=== PATIENT | female | born 1950 | race Caucasian/White ===

== ENCOUNTER 2021-06-04 23:57 | Inpatient (IN) ==
[2021-06-05] MEDS ORDERED: ACETAMINOPHEN 1,000 MG/100 ML VIAL IV STA (00:05)
[2021-06-05] MEDS ORDERED: fentaNYL citrate 100 MCG/2 ML VIAL IV PRN (00:05)
[2021-06-05] MEDS ORDERED: SODIUM CHLORIDE 0.9% 1000ML 1,000 ML IV SCH (00:15)
--- NOTE | 2021-06-05 00:15 | Emergency Department Note ---
History of Present Illness General Chief complaint: Hip Pain Stated complaint: HIP PAIN/INJURY Time Seen by Provider: 06/04/21 23:58 Source: patient and EMS Mode of arrival: EMS Limitations: no limitations History of Present Illness Provider complaint: fall, left hip pain Onset (ago): hour(s) Location: hip Radiation: distal Severity: moderate Associated symptoms: + denies other symptoms Treatments prior to arrival: none This is a 70-year-old female who presents the emergency department following an accidental fall at home. Patient states she was walking through her kitchen, does not recall feeling dizzy or having any other prodromal symptoms, believes she tripped and fell landing on her left hip. Patient denies any head injury or loss of consciousness. Denies any concern for injury to the left upper extremity, back, or neck. Patient states she did previously have a femur fracture that was surgically repaired on the left, no prior hip problems. Patient states she was unable to move or bear weight due to the pain. Patient states secondary to prior surgery she does have chronic neuropathy including a numbness in the left lower extremity. Patient denies any use of anticoagulation. Pt seen during a time of high acuity and national emergency pandemic while wearing PPE. Home Medications Medication Instructions Recorded Confirmed Type montelukast 10 mg tablet 10 mg PO DAILY 01/29/19 06/05/21 History acetaminophen 500 mg tablet 1,000 mg PO Q6H PRN 06/05/21 06/05/21 History (Tylenol Extra Strength) cyclobenzaprine 5 mg tablet 5 mg PO HS 06/05/21 06/05/21 History losartan 25 mg tablet 50 mg PO QAM 06/05/21 06/05/21 History nystatin 100,000 unit/gram topical 1 applic TOPICAL DIRECTED PRN 06/05/21 06/05/21 History cream pyridoxine (vitamin B6) 25 mg 0 mg PO TID 06/05/21 06/05/21 History tablet (Vitamin B-6) sulfamethoxazole 800 1 tab PO BID 06/05/21 06/05/21 History mg-trimethoprim 160 mg tablet thiamine HCl (vitamin B1) 100 mg 100 mg PO DAILY 06/05/21 06/05/21 History tablet Allergies Allergy/AdvReac Type Severity Reaction Status Date / Time No Known Allergies Allergy Unverified 06/05/21 01:18 Past Med/Surg History Medical History (Updated 06/05/21 @ 14:14 by Naif Adams DO) Colon cancer Foot fracture Vomiting Family History Other Family history non-contributory Social History Smoking Status: Former smoker Cigarettes Per Day: 3-4; Smoking End Date: 2011; Second Hand Exposure: No; Do You Dip or Chew Tobacco: No; Tobacco Cessation Education Requested by Patient: No Hx Alcohol Use: No Hx Substance Use: No Preferred Language: Lithuanian Communication Ability: Effective Health Type Technician Required: No Beliefs That Will Affect Care: None marital status: Current Living Situation: Spouse current occupational status: employed How many Children do You have: 2 Feels Safe at Home: Yes Assistive Devices: Walker Review of Systems A total of 10 systems reviewed and were otherwise negative All systems reviewed & are unremarkable except as noted in HPI & below Physical Exam Vital Signs Vital Signs - 24 hr 06/05/21 00:10 06/05/21 00:48 06/05/21 01:27 Temperature 36.4 C L Temperature Source Oral Pulse Rate 80 Pulse Rate [Finger] 81 81 Respiratory Rate 18 18 Respiratory Effort / Characteristics Non-Labored Non-Labored Respiratory Depth Normal Normal Blood Pressure [Right Arm] 201/92 H 168/89 H Blood Pressure Mean [Right Arm] 128 115 Blood Pressure Position [Right Arm] Sitting Pulse Oximetry 98 97 95 Oxygen Delivery Method Room Air Room Air Room Air Sepsis Recent Fever Within 48 Hours No Sepsis New/Unexplained Change in Mental Status N/A Sepsis Action Taken by Nursing No Action Required GENERAL: alert, well appearing, well nourished, no distress, non-toxic EYE EXAM: normal conjunctiva, PERRL and EOM's grossly intact OROPHARYNX: no exudate, no erythema, lips, buccal mucosa, and tongue normal and mucous membranes are moist NECK: supple, no nuchal rigidity, no adenopathy, non-tender LUNGS: Clear to auscultation. Normal chest wall mechanics, no w/r/r HEART: no murmurs, S1 normal and S2 normal ABDOMEN: abdomen soft, non-tender, normo-active bowel sounds, no masses, no rebound or guarding. BACK: Back is symmetrical on inspection and there is no deformity, no midline tenderness, no CVA tenderness. SKIN: no rashes and no bruising UPPER EXTREMITIES: upper extremities are grossly normal. FROM, nml pulses b/l. LOWER EXTREMITIES: No pitting edema. FROM, nml pulses b/l. NEURO EXAM: Normal sensorium, cranial nerves II-XII grossly intact, normal speech, no gross weakness of arms, no gross weakness of legs. Gross sensation intact. Course Administered Medications Acetaminophen (Acetaminophen 325 Mg Tab) 650 mg PO Q4H PRN PRN Reason: pain/fever Stop: 07/05/21 05:04 Last Admin: 06/05/21 10:55 Dose: 650 mg Documented by: [id number] Cyclobenzaprine HCl (Cyclobenzaprine Hcl 5 Mg Tab) 5 mg PO HS MIRTHA Stop: 07/05/21 20:59 Last Admin: 06/05/21 20:04 Dose: 5 mg Documented by: [id number] Hydromorphone HCl (Hydromorphone Inj 0.5 Mg/0.5 Ml Syr) 0.5 mg IV Q3H PRN PRN Reason: Pain Stop: 06/19/21 05:04 Last Admin: 06/06/21 04:22 Dose: 0.5 mg Documented by: [id number] Admin: 06/05/21 23:37 Dose: 0.5 mg Documented by: [id number] Admin: 06/05/21 18:42 Dose: 0.5 mg Documented by: [id number] Admin: 06/05/21 15:44 Dose: 0.5 mg Documented by: [id number] Admin: 06/05/21 12:13 Dose: 0.5 mg Documented by: [id number] Admin: 06/05/21 09:43 Dose: 0.5 mg Documented by: [id number] Admin: 06/05/21 06:42 Dose: 0.5 mg Documented by: [id number] Sodium Chloride (Nss 1000ml) 1,000 mls @ 50 mls/hr IV .Q20H MIRTHA Stop: 06/06/21 19:03 Last Admin: 06/05/21 08:23 Dose: 50 mls/hr Documented by: [id number] Losartan Potassium (Losartan Potassium 50 Mg Tab) 50 mg PO QAM MIRTHA Stop: 07/05/21 08:59 Last Admin: 06/05/21 08:24 Dose: 50 mg Documented by: [id number] Montelukast Sodium (Montelukast Sodium 10 Mg Tablet) 10 mg PO DAILY MIRTHA Stop: 07/05/21 08:59 Last Admin: 06/05/21 08:25 Dose: 10 mg Documented by: [id number] Ondansetron HCl (Ondansetron Inj 2 Mg/Ml 2 Ml Vial) 4 mg IV Q6H PRN PRN Reason: Nausea Stop: 07/05/21 05:04 Last Admin: 06/05/21 06:48 Dose: 4 mg Documented by: [id number] Thiamine HCl (Thiamine Hcl 100 Mg Tab) 100 mg PO DAILY MIRTHA Stop: 07/05/21 08:59 Last Admin: 06/05/21 08:24 Dose: 100 mg Documented by: [id number] Urea (Urea (Urea-Na) 15 Gm Pack) 15 gm PO BID MIRTHA Stop: 07/05/21 10:14 Last Admin: 06/05/21 20:04 Dose: 15 gm Documented by: [id number] Admin: 06/05/21 10:55 Dose: 15 gm Documented by: [id number] Discontinued Medications Fentanyl Citrate (Fentanyl Citrate 100 Mcg/2 Ml Vial) 50 mcg IV Q15M PRN PRN Reason: Pain Stop: 06/19/21 00:04 Last Admin: 06/05/21 00:31 Dose: 50 mcg Documented by: [id number] Hydromorphone HCl (Hydromorphone Inj 0.5 Mg/0.5 Ml Syr) 0.5 mg IV NOW STA Stop: 06/05/21 02:42 Last Admin: 06/05/21 03:00 Dose: 0.5 mg Documented by: [id number] Acetaminophen (Ofirmev) 1,000 mg in 100 mls @ 400 mls/hr IV NOW STA Stop: 06/05/21 00:19 Last Infusion: 06/05/21 01:30 Dose: 0 mls/hr Documented by: [id number] Admin: 06/05/21 00:32 Dose: 400 mls/hr Documented by: [id number] Sodium Chloride (Nss 1000ml) 1,000 mls @ 125 mls/hr IV .Q8H MIRTHA Stop: 07/05/21 00:14 Last Infusion: 06/05/21 08:59 Dose: 0 mls/hr Documented by: [id number] Admin: 06/05/21 00:31 Dose: 125 mls/hr Documented by: [id number] Medical Decision Making Differential Diagnosis Fracture, subluxation, dislocation, contusion, ligamentous injury, neurovascular, compartment syndrome, rhabdomyolysis, as well as other pathologies. Medical Records Attestation: I reviewed the patient's medical records. Home Medications Current Medication List: was personally reviewed by me Laboratory Data Attestation: I reviewed the patient's lab results. Result diagrams: 06/05/21 07:16 06/05/21 07:16 Lab Results 06/05/21 06/05/21 06/05/21 Range/Units 00:26 00:26 00:26 WBC 4.70 L (4.8-10.8) K/uL RBC 4.22 (4.2-5.4) M/uL Hgb 12.6 (12.0-16.0) g/dL Hct 36.7 L (37-47) % MCV 87.0 (80-100) fL MCH 29.9 (25-34) pg MCHC 34.3 (32-36) g/dL RDW Std Deviation 43.3 (36.4-46.3) fL RDW Coeff of Kimberlee 13.6 (11.5-14.5) % Plt Count 266 (130-400) K/uL MPV 8.8 (7.4-10.4) fL Immature Gran % (Auto) 0.2 % Neut % (Auto) 76.0 % Lymph % (Auto) 15.7 % [place] % (Auto) 5.3 % Eos % (Auto) 1.5 % Baso % (Auto) 1.3 % Neut # (Auto) 3.57 (1.4-6.5) K/uL Lymph # (Auto) 0.74 L (1.2-3.4) K/uL [place] # (Auto) 0.25 (0.11-0.59) K/uL Eos # (Auto) 0.07 (0-0.5) K/uL Baso # (Auto) 0.06 (0-0.2) K/uL Immature Gran # (Auto) 0.01 (0.00-0.02) K/uL PT 9.8 (9.0-12.0) Seconds INR 1.0 (0.9-1.1) Sodium 125 L (136-145) mmol/L Potassium 3.5 (3.5-5.1) mmol/L Chloride 94 L (98-107) mmol/L Carbon Dioxide 24 (21-32) mmol/L Anion Gap 7 (3-11) BUN 10 (6-23) mg/dl Creatinine 0.61 (0.6-1.2) mg/dl Est Cr Clr Drug Dosing 67.9 ml/min Est GFR ( Amer) 106.5 ml/min Est GFR (Non-Af Amer) 91.9 ml/min BUN/Creatinine Ratio 16.4 (10-20) Glucose 113 H (70-99(Fasting)) mg/dl Calcium 8.7 (8.5-10.1) mg/dl Total Bilirubin 0.3 (0.2-1.0) mg/dl AST 26 (13-39) U/L ALT 24 (7-52) U/L Alkaline Phosphatase 93 (34-104) U/L Total Protein 6.3 (6.0-8.3) gm/dl Albumin 4.2 (3.4-5.0) gm/dl Globulin 2.1 L (2.5-4.0) gm/dl Albumin/Globulin Ratio 2.0 (0.9-2) SARS-CoV-2, RNA, NAAT (NEGATIVE) 06/05/21 Range/Units 00:26 WBC (4.8-10.8) K/uL RBC (4.2-5.4) M/uL Hgb (12.0-16.0) g/dL Hct (37-47) % MCV (80-100) fL MCH (25-34) pg MCHC (32-36) g/dL RDW Std Deviation (36.4-46.3) fL RDW Coeff of Kimberlee (11.5-14.5) % Plt Count (130-400) K/uL MPV (7.4-10.4) fL Immature Gran % (Auto) % Neut % (Auto) % Lymph % (Auto) % [place] % (Auto) % Eos % (Auto) % Baso % (Auto) % Neut # (Auto) (1.4-6.5) K/uL Lymph # (Auto) (1.2-3.4) K/uL [place] # (Auto) (0.11-0.59) K/uL Eos # (Auto) (0-0.5) K/uL Baso # (Auto) (0-0.2) K/uL Immature Gran # (Auto) (0.00-0.02) K/uL PT (9.0-12.0) Seconds INR (0.9-1.1) Sodium (136-145) mmol/L Potassium (3.5-5.1) mmol/L Chloride (98-107) mmol/L Carbon Dioxide (21-32) mmol/L Anion Gap (3-11) BUN (6-23) mg/dl Creatinine (0.6-1.2) mg/dl Est Cr Clr Drug Dosing ml/min Est GFR ( Amer) ml/min Est GFR (Non-Af Amer) ml/min BUN/Creatinine Ratio (10-20) Glucose (70-99(Fasting)) mg/dl Calcium (8.5-10.1) mg/dl Total Bilirubin (0.2-1.0) mg/dl AST (13-39) U/L ALT (7-52) U/L Alkaline Phosphatase (34-104) U/L Total Protein (6.0-8.3) gm/dl Albumin (3.4-5.0) gm/dl Globulin (2.5-4.0) gm/dl Albumin/Globulin Ratio (0.9-2) SARS-CoV-2, RNA, NAAT POSITIVE A* (NEGATIVE) Imaging Data Attestation: I personally reviewed and interpreted this imaging study as follows: My Impression: xr pelvis/hip: intertrochanteric fx Chest: A single view study of the chest was reviewed and was negative for cardiomegaly, focal infiltrate, effusion, pulmonary edema, or wide mediastinum. ECG Data Attestation: I personally reviewed and interpreted this ECG as follows: Indication: + other Rate (beats per minute): 75 Rhythm: + normal sinus ECG Intervals/blocks: + Normal QRS and + Normal QT ECG [place]: + Normal ECG ST segments: + Normal ST segments MDM Narrative This is a 70-year-old female presents emergency department via EMS after an accidental mechanical fall at home. X-rays immediately performed at bedside and patient found to have a left intertrochanteric hip fracture. Patient given pain medication, and basic labs drawn and sent. I did discuss results with patient and family at bedside. Case discussed with hospitalist for additional evaluation and management. Patient was noted to have hyponatremia, although this was also noted previously. An order was placed for continuous cardiac monitoring. The monitor shows a rate of _80_ with _normal sinus_ rhythm. Impression & Plan Acute pain of left hip, Hip fracture, intertrochanteric, Hyponatremia, Fall Discharge Plan Visit Data Chief Complaint: Hip Pain Stated Complaint: HIP PAIN/INJURY ED Provider: Bridget Joshua Discharge Problem: Acute pain of left hip, Hip fracture, intertrochanteric, Hyponatremia, Fall Patient Disposition: Admitted As Inpatient Discharge Instructions Interventions: ED Discharge Assessment Last Done: 06/05/21 04:59 Discharge Problem: Hip fracture, intertrochanteric Qualifiers: Encounter type: initial encounter Fracture type: closed Fracture alignment: displaced Laterality: left Qualified Code(s): S72.142A - Displaced intertrochanteric fracture of left femur, initial encounter for closed fracture Fall Qualifiers: Encounter type: initial encounter Qualified Code(s): W19.XXXA - Unspecified fall, initial encounter
[2021-06-05 00:39] LABS: Basophils # (auto) 0.06 K/uL (0-0.2); Basophils % (auto) 1.3 %; Eosinophils # (auto) 0.07 K/uL (0-0.5); Eosinophils % (auto) 1.5 %; Hematocrit (blood only) 36.7 % (37-47); Hemoglobin 12.6 g/dL (12.0-16.0); Immature Granulocytes # (auto) 0.01 K/uL (0.00-0.02); Immature Granulocytes % (auto) 0.2 %; Lymphocytes # (auto) 0.74 K/uL (1.2-3.4); Lymphocytes % (auto) 15.7 %; Mean Corpuscular Hemoglobin 29.9 pg (25-34); Mean Corpuscular Hgb Conc 34.3 g/dL (32-36); Mean Platelet Volume 8.8 fL (7.4-10.4); Monocytes # (auto) 0.25 K/uL (0.11-0.59); Monocytes % (auto) 5.3 %; Neutrophils # (auto) 3.57 K/uL (1.4-6.5); Platelet Count 266 K/uL (130-400); RDW Coefficient of Variation 13.6 % (11.5-14.5); RDW Standard Deviation 43.3 fL (36.4-46.3); Red Blood Count 4.22 M/uL (4.2-5.4)
[2021-06-05 00:49] LABS: Prothrombin Time 9.8 Seconds (9.0-12.0)
[2021-06-05 01:00] LABS: Albumin Level 4.2 gm/dl (3.4-5.0); BUN Creatinine Ratio 16.4 (10-20); Bilirubin,Total 0.3 mg/dl (0.2-1.0); Calcium 8.7 mg/dl (8.5-10.1); Creatinine Clr Calc Pharmacy 67.9 ml/min; Est GFR (African American) 106.5 ml/min; Est GFR (Non-African American) 91.9 ml/min; Globulin 2.1 gm/dl (2.5-4.0); Potassium 3.5 mmol/L (3.5-5.1); Total Protein 6.3 gm/dl (6.0-8.3)
[2021-06-05] MEDS ORDERED: HYDROmorphone INJ 0.5 MG/0.5 ML SYR IV STA (02:41)
[2021-06-05 04:09] LABS: Influenza A virus by PCR Negative (Neg); Influenza B virus by PCR Negative (Neg); RSV by PCR Negative (Neg)
[2021-06-05 04:12] LABS: SARS CoV2 RNA(COVID-19) InHosp POSITIVE (Negative)
[2021-06-05] MEDS ORDERED: NYSTATIN CR 15 GM TUBE EXT PRN (05:05)
[2021-06-05] MEDS ORDERED: POLYETHYLENE (MIRALAX) 17 GM PACK PO PRN (05:05)
[2021-06-05] MEDS: HYDROmorphone INJ 0.5 MG/0.5 ML SYR IV PRN ×6 (06:42→23:37)
[2021-06-05] MEDS: ONDANSETRON INJ 2 MG/ML 2 ML VIAL IV PRN (06:48)
[2021-06-05 07:32] LABS: Basophils # (auto) 0.05 K/uL (0-0.2); Basophils % (auto) 1.1 %; Eosinophils # (auto) 0.01 K/uL (0-0.5); Eosinophils % (auto) 0.2 %; Hematocrit (blood only) 32.7 % (37-47); Hemoglobin 11.3 g/dL (12.0-16.0); Immature Granulocytes # (auto) 0.01 K/uL (0.00-0.02); Immature Granulocytes % (auto) 0.2 %; Lymphocytes # (auto) 0.62 K/uL (1.2-3.4); Lymphocytes % (auto) 13.2 %; Mean Corpuscular Hemoglobin 30.1 pg (25-34); Mean Corpuscular Hgb Conc 34.6 g/dL (32-36); Mean Corpuscular Volume 87.2 fL (80-100); Mean Platelet Volume 8.5 fL (7.4-10.4); Monocytes # (auto) 0.01 K/uL (0.11-0.59); Monocytes % (auto) 0.2 %; Neutrophils % (auto) 85.1 %; Platelet Count 240 K/uL (130-400); RDW Coefficient of Variation 13.5 % (11.5-14.5); RDW Standard Deviation 43.9 fL (36.4-46.3); Red Blood Count 3.75 M/uL (4.2-5.4)
[2021-06-05 08:01] LABS: BUN Creatinine Ratio 16.4 (10-20); Calcium 8.4 mg/dl (8.5-10.1); Creatinine Clr Calc Pharmacy 75.3 ml/min; Est GFR (African American) 110.1 ml/min; Magnesium 1.8 mg/dl (1.7-2.4); Potassium 4.5 mmol/L (3.5-5.1)
[2021-06-05] MEDS: SODIUM CHLORIDE 0.9% 1000ML 1,000 ML IV SCH (08:23)
[2021-06-05] MEDS: THIAMINE HCL 100 MG TAB PO SCH (08:24)
[2021-06-05] MEDS: LOSARTAN POTASSIUM 50 MG TAB PO SCH (08:24)
[2021-06-05] MEDS: MONTELUKAST SODIUM 10 MG TABLET PO SCH (08:25)
--- NOTE | 2021-06-05 08:59 | XRay Report ---
SINGLE VIEW CHEST CLINICAL HISTORY: Trauma. FINDINGS: An AP, portable, supine chest radiograph is compared to study dated 01/29/2019. The examina tion is performed through a trauma board. The heart is top normal for projection noting atherosclerot ic calcification of the thoracic aorta. The pulmonary vasculature is noncongested. Chronic interstiti al thickening is similar to previous. There are scattered calcified granulomas. No airspace consolida tion or large pleural effusion is identified. No pneumothorax is seen. The skeletal structures are os teopenic. The bony thorax is grossly intact. IMPRESSION: No acute cardiopulmonary abnormality. ACT 112: Negative or not required by law. Electronically signed by: Paul Cobos M.D. 06/05/2021 8:58 AM
--- NOTE | 2021-06-05 09:09 | XRay Report ---
SINGLE VIEW PELVIS; 2 VIEWS LEFT HIP CLINICAL HISTORY: Trauma. Left hip injury. FINDINGS: 2 AP supine views of the pelvis with AP and crosstable lateral views of the left hip are co rrelated with pelvic CT dated 01/29/2019. The skeletal structures are osteopenic. There is a comminut ed and angulated intertrochanteric/subtrochanteric fracture of the left proximal femur with overlying soft tissue edema. No additional fracture is identified involving the right hip or the bony pelvis. Postoperative change is partially visualized in the left femoral shaft. Mild to moderate degenerative joint space narrowing is seen in the hips. There is degenerative sclerosis of the sacroiliac joints. IMPRESSION: Left proximal femoral fracture as above. Electronically signed by: Paul Cobos M.D. 06/05/2021 9:08 AM
--- NOTE | 2021-06-05 09:46 | Electrocardiogram Report ---
Test Reason : Blood Pressure : / mmHG Vent. Rate : 075 BPM Atrial Rate : 075 BPM P-R Int : 164 ms QRS Dur : 072 ms QT Int : 380 ms P-R-T Axes : 065 031 030 degrees QTc Int : 424 ms Poor data quality, interpretation may be adversely affected Normal sinus rhythm Normal ECG No previous ECGs available Confirmed by Carter Cespedes ([id number]) on 06/05/2021 9:46:09 AM Referred By: REFERRED SELF Confirmed By:Carter Cespedes
--- NOTE | 2021-06-05 09:48 | Nephrology Consultation ---
Date of Consultation June 05, 2021 Assessment & Plan (1) Hyponatremia: -Urine and plasma studies point towards a SIADH picture, but I think she is got element of volume depletion, -She has already got 1 L of normal saline, agree with continuing on normal saline 50 mils per hour, for a total of 1.5 L in 24 hours. -Start on urea 15 g twice daily. -Safe correction would be 8 to 10 mmol in the next 24 hours. -Control her nausea and pain, as this on nonosmotic stimulus for ADH release w hich can worsen the hyponatremia. (2) Acute pain of left hip: #Left intertrochanteric fracture -Orthopedics on board History of Present Illness Reason for Consultation: Hyponatremia Attending Physician: Lisa Hawk MD History of Present Illness 70-year-old female who presented with left-sided intertrochanteric fracture after accidental fall at home. Prior history of fracture surgical repair on the left femur. Your last was significant for sodium of 127, normal potassium. She was given 1 L of normal saline. Sodium has remained around between 125-127. Blood pressure slightly elevated but she is back on antihypertensives. On exam she looks volume depleted complained of pain. Allergies Allergy/AdvReac Type Severity Reaction Status Date / Time No Known Allergies Allergy Unverified 06/05/21 01:18 Home Medications Medication Instructions Recorded Confirmed Type montelukast 10 mg tablet 10 mg PO DAILY 01/29/19 06/05/21 History acetaminophen 500 mg tablet 1,000 mg PO Q6H PRN 06/05/21 06/05/21 History (Tylenol Extra Strength) cyclobenzaprine 5 mg tablet 5 mg PO HS 06/05/21 06/05/21 History losartan 25 mg tablet 50 mg PO QAM 06/05/21 06/05/21 History nystatin 100,000 unit/gram topical 1 applic TOPICAL DIRECTED PRN 06/05/21 06/05/21 History cream pyridoxine (vitamin B6) 25 mg 0 mg PO TID 06/05/21 06/05/21 History tablet (Vitamin B-6) sulfamethoxazole 800 1 tab PO BID 06/05/21 06/05/21 History mg-trimethoprim 160 mg tablet thiamine HCl (vitamin B1) 100 mg 100 mg PO DAILY 06/05/21 06/05/21 History tablet Patient History Medical History (Updated 06/05/21 @ 14:14 by Naif Adams DO) Colon cancer Foot fracture Vomiting Family History Other Family history non-contributory Social History Smoking Status: Former smoker Cigarettes Per Day: 3-4; Smoking End Date: 2011; Second Hand Exposure: No; Do You Dip or Chew Tobacco: No; Tobacco Cessation Education Requested by Patient: No Hx Alcohol Use: No Hx Substance Use: No Preferred Language: Macanese Communication Ability: Effective Aviation Survival Technician Required: No Beliefs That Will Affect Care: None marital status: Current Living Situation: Spouse current occupational status: employed How many Children do You have: 2 Feels Safe at Home: Yes Assistive Devices: Walker Review of Systems Review of Systems: Volume depleted, dry mucosa Passing urine Pain in the fracture site Physical Exam Physical Exam: GENERAL: Alert oriented, complains of pain on the left hip EYE EXAM: normal conjunctiva, PERRL and EOM's grossly intact OROPHARYNX: Dry mucosa LUNGS: Clear to auscultation. Normal chest wall mechanics, no w/r/r HEART: no murmurs, S1 normal and S2 normal ABDOMEN: abdomen soft, non-tender, normo-active bowel sounds, EXTREMITIES: No pitting edema. FROM, nml pulses b/l, left-sided hip pain NEURO EXAM: Alert oriented x3 Results & Data ([facility]) Vital Signs (Past 12 Hours) Vital Signs Temp Pulse Pulse Resp BP BP Pulse Ox 06/05/21 07:23 36.5 C 86 19 146/75 H 91 06/05/21 05:14 36.7 C 90 14 147/87 H 97 06/05/21 05:05 36.7 C 90 14 147/87 H 97 06/05/21 03:13 82 20 154/83 H 97 06/05/21 01:27 81 168/89 H 95 06/05/21 00:48 81 18 201/92 H 97 06/05/21 00:10 36.4 C L 80 18 98 Laboratory Results 06/05/21 07:16 06/05/21 07:16
[2021-06-05] MEDS: UREA (UREA-NA) 15 GM PACK PO SCH ×2 (10:55→20:04)
[2021-06-05] MEDS: ACETAMINOPHEN 325 MG TAB PO PRN (10:55)
--- NOTE | 2021-06-05 11:07 | XRay Report ---
LEFT FEMUR 2 VIEWS CLINICAL HISTORY: Femoral fracture. FINDINGS: AP and crosstable lateral views of the left femur are correlated with radiographs of left h ip performed 06/04/2021. The skeletal structures are osteopenic. Again seen is a comminuted and angula fernie fracture of the intertrochanteric/subtrochanteric left femur with overlying soft tissue edema. Th e distal left femur and the visualized left hemipelvis appear intact. There is chronic posttraumatic deformity of the distal femoral metaphysis status post buttress plate fixation. The orthopedic hardwa re appears intact. The hip and knee joints appear maintained. IMPRESSION: 1. Unchanged appearance of a left proximal femoral fracture as compared to yesterday. 2. There is chronic posttraumatic deformity of the distal femur status post buttress plate fixation. Electronically signed by: Paul Cobos M.D. 06/05/2021 11:06 AM
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
--- NOTE | 2021-06-05 14:14 | Anesthesiology Consultation ---
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 History Surgery Operation Date: 06/06/21 12:00 Proposed Procedures p Intramedullary Marshal Femur Left(Left) - Xu Patel DO Height/Weight Height: 5 ft 2 in Weight: 53.1 kg Allergies Allergy/AdvReac Type Severity Reaction Status Date / Time No Known Allergies Allergy Unverified 06/05/21 01:18 Medications Home Medications Medication Instructions Recorded Confirmed Last Taken montelukast 10 mg tablet 10 mg PO DAILY 01/29/19 06/05/21 Unknown acetaminophen 500 mg tablet 1,000 mg PO Q6H PRN 06/05/21 06/05/21 Unknown (Tylenol Extra Strength) cyclobenzaprine 5 mg tablet 5 mg PO HS 06/05/21 06/05/21 Unknown losartan 25 mg tablet 50 mg PO QAM 06/05/21 06/05/21 Unknown nystatin 100,000 unit/gram topical 1 applic TOPICAL DIRECTED PRN 06/05/21 06/05/21 Unknown cream pyridoxine (vitamin B6) 25 mg 0 mg PO TID 06/05/21 06/05/21 Unknown tablet (Vitamin B-6) sulfamethoxazole 800 1 tab PO BID 06/05/21 06/05/21 06/04/21 09:00 mg-trimethoprim 160 mg tablet thiamine HCl (vitamin B1) 100 mg 100 mg PO DAILY 06/05/21 06/05/21 Unknown tablet Active Medications Generic Name Dose Route Start Last Admin Trade Name Freq PRN Reason Stop Dose Admin Acetaminophen 650 mg 06/05/21 05:05 06/05/21 10:55 Acetaminophen 325 Mg Tab PO 07/05/21 05:04 650 mg Q4H PRN Administration pain/fever Hydromorphone HCl 0.5 mg 06/05/21 05:05 06/05/21 12:13 Hydromorphone Inj 0.5 Mg/0.5 Ml Syr IV 06/19/21 05:04 0.5 mg Q3H PRN Administration Pain Sodium Chloride 1,000 mls @ 50 mls/hr 06/05/21 03:04 06/05/21 08:23 Nss 1000ml IV 06/06/21 19:03 50 mls/hr .Q20H MIRTHA Administration Losartan Potassium 50 mg 06/05/21 09:00 06/05/21 08:24 Losartan Potassium 50 Mg Tab PO 07/05/21 08:59 50 mg QAM MIRTHA Administration Montelukast Sodium 10 mg 06/05/21 09:00 06/05/21 08:25 Montelukast Sodium 10 Mg Tablet PO 07/05/21 08:59 10 mg DAILY MIRTHA Administration Ondansetron HCl 4 mg 06/05/21 05:05 06/05/21 06:48 Ondansetron Inj 2 Mg/Ml 2 Ml Vial IV 07/05/21 05:04 4 mg Q6H PRN Administration Nausea Thiamine HCl 100 mg 06/05/21 09:00 06/05/21 08:24 Thiamine Hcl 100 Mg Tab PO 07/05/21 08:59 100 mg DAILY MIRTHA Administration Urea 15 gm 06/05/21 10:15 06/05/21 10:55 Urea (Urea-Na) 15 Gm Pack PO 07/05/21 10:14 15 gm BID MIRTHA Administration Past Medical History Medical History (Updated 06/05/21 @ 14:14 by Naif Adams DO) Colon cancer Foot fracture Vomiting Past Family History Family History Other Family history non-contributory Social History Smoking Status: Former smoker tobacco type: cigarettes Smoking cigarettes per day: 3-4 Do You Dip or Chew Tobacco: No Smoking End Date: 2011 Hx Alcohol Use: No Hx Substance Use: No Physical Exam Vital Signs Last Vital Signs Temp 98.4 F 06/05/21 11:30 Pulse 88 06/05/21 11:30 Resp 19 06/05/21 11:30 BP 148/74 H 06/05/21 11:30 Pulse Ox 92 06/05/21 11:30 Testing Laboratory Results 06/05/21 07:16 06/05/21 07:16 PT 9.8 Seconds (9.0-12.0) 06/05/21 00:26 INR 1.0 (0.9-1.1) 06/05/21 00:26 Laboratory Tests 06/05/21 Unknown SARS-CoV-2 (PCR) POSITIVE A* Electrocardiogram Date: 06/05/21 Findings: + NSR @ (75 bpm) Chest X-Ray Date: 06/05/21 Findings: + NAD
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
[2021-06-05] MEDS: CYCLOBENZAPRINE HCL 5 MG TAB PO SCH (20:04)
[2021-06-06] MEDS: HYDROmorphone INJ 0.5 MG/0.5 ML SYR IV PRN ×5 (04:22→23:20)
[2021-06-06] MEDS ORDERED: LIDOCAINE 2% 2 ML VIAL/AMP(20MG/ML) INFIL ONE ×2 (07:15→11:33)
[2021-06-06] MEDS: SODIUM CHLORIDE 0.9% 1000ML 1,000 ML IV SCH (07:15)
[2021-06-06] MEDS ORDERED: PROPOFOL IV EMULSION 10 MG/ML 20 ML VIAL IV ONE ×2 (07:15→11:33)
[2021-06-06] MEDS ORDERED: MIDAZOLAM HCL 1 MG/ML 2ML VIAL ONE (07:16)
[2021-06-06] MEDS ORDERED: BUPIVACAINE 0.5 % 5 MG/1 ML PF 10ML VIAL ONE ×2 (07:17→07:20)
--- NOTE | 2021-06-06 07:37 | History & Physical Bridge Note ---
Date of Service June 06, 2021 History & Physical Bridge Note I have examined the patient, reviewed the History & Physical and in the interval since the performance of the History & Physical I have noted the following changes of clinical significance: no changes noted
[2021-06-06] MEDS ORDERED: BUPIVACAINE 0.5 % 5 MG/1 ML MPF 30ML VIAL ONE (07:46)
[2021-06-06] MEDS ORDERED: ceFAZolin 330 MG/ML 1 GM VIAL ONE (07:48)
[2021-06-06] MEDS ORDERED: SODIUM CHLORIDE 0.9% INJ 10 ML VIAL ONE (07:49)
--- NOTE | 2021-06-06 08:21 | Orthopedic Consultation ---
Date of Consultation June 06, 2021 Assessment & Plan (1) Hip fracture, intertrochanteric: Patient suffered an angulated intertrochanteric/subtrochanteric periprosthetic femur fracture. The fracture is just proximal to a long plate that she has due to her previous femur fracture. Surgical intervention is recommended. Patient will require trochanteric femoral nailing. Dr. Patel will see the patient and discuss risks/benefits, alternatives with the patient and obtain surgical consent. We will plan on OR today. History of Present Illness Reason for Consultation: Left hip fracture Requesting Physician: Deejay Cantu Attending Physician: Lisa Hawk MD History of Present Illness 70-year-old female with past medical history significant for SIADH, hypertension, GERD, history of osteoporosis, history of rectal cancer, status post proctectomy complete with colostomy and s/p chemo. She suffered a fall at home. She has history of prior fall with ORIF of a distal femur fracture about 2 years ago in [place]. X-rays in the emergency room demonstrated a displaced intertrochanteric/subtrochanteric fracture. She is Covid positive. Allergies Allergy/AdvReac Type Severity Reaction Status Date / Time No Known Allergies Allergy Unverified 06/05/21 01:18 Home Medications Medication Instructions Recorded Confirmed Type montelukast 10 mg tablet 10 mg PO DAILY 01/29/19 06/05/21 History acetaminophen 500 mg tablet 1,000 mg PO Q6H PRN 06/05/21 06/05/21 History (Tylenol Extra Strength) cyclobenzaprine 5 mg tablet 5 mg PO HS 06/05/21 06/05/21 History losartan 25 mg tablet 50 mg PO QAM 06/05/21 06/05/21 History nystatin 100,000 unit/gram topical 1 applic TOPICAL DIRECTED PRN 06/05/21 06/05/21 History cream pyridoxine (vitamin B6) 25 mg 0 mg PO TID 06/05/21 06/05/21 History tablet (Vitamin B-6) sulfamethoxazole 800 1 tab PO BID 06/05/21 06/05/21 History mg-trimethoprim 160 mg tablet thiamine HCl (vitamin B1) 100 mg 100 mg PO DAILY 06/05/21 06/05/21 History tablet Patient History Medical History (Updated 06/05/21 @ 14:14 by Naif Adams DO) Colon cancer Foot fracture Vomiting Family History Other Family history non-contributory Social History Smoking Status: Former smoker Cigarettes Per Day: 3-4; Smoking End Date: 2011; Second Hand Exposure: No; Do You Dip or Chew Tobacco: No; Tobacco Cessation Education Requested by Patient: No Hx Alcohol Use: No Hx Substance Use: No Preferred Language: Salvadorean Communication Ability: Effective 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 Tenderness proximal femur. Mild pain with gentle logroll. Distally neurovascular status and sensation intact. Compartments are compressible. Skin: no rashes, warm and dry Neurologic: normal touch/pain/proprioception Psychiatric: A+Ox3, euthymic affect Results & Data ([facility]) Vital Signs (Past 12 Hours) Vital Signs Temp Pulse Pulse Resp BP Pulse Ox 06/06/21 07:16 37.0 C 91 H 18 134/70 95 06/06/21 05:24 36.5 C 87 16 134/76 96 06/05/21 23:23 141/82 H 06/05/21 23:07 36.8 C 98 H 16 172/85 H 95 06/05/21 22:19 93 H Diagnostic Findings SINGLE VIEW PELVIS; 2 VIEWS LEFT HIP CLINICAL HISTORY: Trauma. Left hip injury. FINDINGS: 2 AP supine views of the pelvis with AP and crosstable lateral views of the left hip are correlated with pelvic CT dated 01/29/2019. The skeletal structures are osteopenic. There is a comminuted and angulated intertrochanteric/subtrochanteric fracture of the left proximal femur with overlying soft tissue edema. No additional fracture is identified involving the right hip or the bony pelvis. Postoperative change is partially visualized in the left femoral shaft. Mild to moderate degenerative joint space narrowing is seen in the hips. There is degenerative sclerosis of the sacroiliac joints. IMPRESSION: Left proximal femoral fracture as above. (1) Hip fracture, intertrochanteric Encounter type: initial encounter Fracture alignment: displaced Fracture type: closed Laterality: left Qualified Code(s): S72.142A - Displaced intertrochanteric fracture of left femur, initial encounter for closed fracture
[2021-06-06] MEDS ORDERED: ePHEDrine sulfate 50 MG/ML AMP IV PRN (09:08)
[2021-06-06] MEDS ORDERED: ONDANSETRON INJ 2 MG/ML 2 ML VIAL IV PRN (09:08)
[2021-06-06] MEDS ORDERED: ATROPINE SULFATE 0.1 MG/ML 10ML SYR IV PRN (09:08)
[2021-06-06] MEDS ORDERED: fentaNYL citrate 100 MCG/2 ML VIAL IV PRN (09:08)
[2021-06-06] MEDS ORDERED: ceFAZolin 1000MG 1,000 MG/7.5 ML SYR IV ONE (10:25)
--- NOTE | 2021-06-06 10:53 | Fluoroscopy Report ---
FL hip LT 2-3V HISTORY: 70 years-old Female LEFT TROCH NAIL acute fracture of the left proximal hip COMPARISON: Left femur radiographs 06/05/2021 TECHNIQUE: 4 spot fluoroscopic images of the left hip were obtained utilizing 128.2 seconds fluorosco py time FINDINGS: Lateral plate and screw fusion of the mid to distal femur redemonstrated. Status post placement of an intratrochanteric nail with medullary irving fixating the acute intertrochanteric/subtrochanteric fract ure. There is mild persistent displacement with improved angulation. Expected postoperative soft tiss ue swelling with deep tissue air. IMPRESSION: Fluoroscopic assistance as above. ACT 112: Negative or not required by law. The above report was generated using voice recognition software. It may contain grammatical, syntax o r spelling errors. Electronically signed by: Terell Leonard M.D. 06/06/2021 10:51 AM
--- NOTE | 2021-06-06 11:15 | Post Operative Brief Note ---
Immediate Post Op Note v1 Date of Surgery June 06, 2021 Pre & Post Diagnosis Operation Date: 06/06/21 12:00 Pre-Op Diagnosis: Left angulated periprosthetic intertrochanteric/subtrochanteric femur fracture, retained hardware distal femoral supracondylar fracture Post-Op Diagnosis: Left angulated periprosthetic intertrochanteric/subtrochanteric femur fracture, retained hardware distal femoral supracondylar fracture I identified the patient and participated in the time-out.: Yes Procedure Operation Date: 06/06/21 12:00 Actual Procedures p 1. Open reduction internal fixation left angulated periprosthetic intertrochanteric/subtrochanteric femur fracture with a Synthes intermediate 235 mm titanium trochanteric fixation nail with distal locking screw. s 2.Open removal hardware left femoral plate 3. Revision fixation ORIF distal femoral fracture with insertion titanium femoral screw. (Left) - Xu Patel DO Surgeon Xu Patel DO Blind Cleaner Mynor Staley PA-C Estimated Blood Loss 50 Findings Consistent with Post-Op Diagnosis Drains Gage Catheter (was in prior to arrival to operating room) Anesthesia Type MAC Spinal Regional Complications none Disposition Accompanied Patient To Recovery: Yes
[2021-06-06] MEDS ORDERED: ePHEDrine sulfate 50 MG/ML SYR ONE (11:33)
[2021-06-06] MEDS ORDERED: ATROPINE SULFATE 1MG/2.5ML SYR ONE (11:33)
[2021-06-06] MEDS ORDERED: SUCCINYLCHOLINE 100MG/5ML SYR IV ONE (11:33)
[2021-06-06] MEDS: UREA (UREA-NA) 15 GM PACK PO SCH ×2 (11:51→21:34)
[2021-06-06] MEDS: THIAMINE HCL 100 MG TAB PO SCH (11:51)
[2021-06-06] MEDS: MONTELUKAST SODIUM 10 MG TABLET PO SCH (11:51)
[2021-06-06] MEDS: LOSARTAN POTASSIUM 50 MG TAB PO SCH (11:51)
--- NOTE | 2021-06-06 12:01 | Anesthesiology Progress Note ---
Date of Service June 06, 2021 Anesthesia Post Procedure Vital Signs Vital Signs: Temp Pulse Pulse Pulse Resp BP BP 06/06/21 11:56 98.2 F 88 18 175/78 H 06/06/21 11:24 97.5 F L 82 16 154/98 H 06/06/21 11:15 84 16 154/85 H 06/06/21 11:05 97.7 F 87 16 136/72 06/06/21 07:16 98.6 F 91 H 18 134/70 06/06/21 05:24 97.7 F 87 16 134/76 06/05/21 23:23 141/82 H 06/05/21 23:07 98.2 F 98 H 16 172/85 H 06/05/21 22:19 93 H 06/05/21 19:40 98.8 F 98 H 14 154/84 H 06/05/21 16:00 91 H 06/05/21 15:32 98.2 F 94 H 18 158/83 H Pulse Ox 06/06/21 11:56 94 06/06/21 11:24 96 06/06/21 11:15 96 06/06/21 11:05 94 06/06/21 07:16 95 06/06/21 05:24 96 06/05/21 23:23 06/05/21 23:07 95 06/05/21 22:19 06/05/21 19:40 96 06/05/21 16:00 06/05/21 15:32 91 Transfer of Care Handoff Completed per policy Notes Mental Status: alert / awake / arousable and participated in evaluation Patient Amnestic to Procedure: Yes Nausea / Vomiting: adequately controlled Pain: adequately controlled Airway Patency, RR, SpO2: stable & adequate BP & HR: stable & adequate Hydration State: stable & adequate Neuraxial Anesthesia: was administered and sensory block is resolving Anesthetic Complications: no major complications apparent and Pt Satisfied with anesthetic care
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
[2021-06-06 12:43] LABS: Hematocrit (blood only) 30.7 % (37-47); Hemoglobin 10.4 g/dL (12.0-16.0); Mean Corpuscular Hemoglobin 29.7 pg (25-34); Mean Corpuscular Volume 87.7 fL (80-100); Mean Platelet Volume 8.7 fL (7.4-10.4); Platelet Count 237 K/uL (130-400); RDW Coefficient of Variation 13.7 % (11.5-14.5); RDW Standard Deviation 44.3 fL (36.4-46.3); White Blood Count 4.68 K/uL (4.8-10.8)
[2021-06-06 12:57] LABS: Mean Corpuscular Hgb Conc 33.9 g/dL (32-36)
[2021-06-06 13:05] LABS: BUN Creatinine Ratio 42.6 (10-20); Calcium 8.1 mg/dl (8.5-10.1); Creatinine Clr Calc Pharmacy 88.1 ml/min; Est GFR (Non-African American) 100.1 ml/min; Potassium 4.2 mmol/L (3.5-5.1)
--- NOTE | 2021-06-06 14:53 | Nephrology Progress Note ---
Date of Service June 06, 2021 Assessment & Plan (1) Hyponatremia: Plan: -Urine and plasma studies point towards a SIADH picture, with an element of volume depletion, Had 2.0 lit of fluid yesterday -Sna has remained at 126. -Fluid restrict at 1.5 lit - Start on lasix 20 mg once, continue on urea 15 mg BID. -Safe correction would be 8 to 10 mmol in the next 24 hours. -Control her nausea and pain, as this on nonosmotic stimulus for ADH release which can worsen the hyponatremia. (2) Acute pain of left hip: Plan: #Left intertrochanteric fracture -Orthopedics on board Admission and Anticipated Discharge Date Admission Date: June 05, 2021 Subjective Patient seen and examined Patient currently reports left hip pain. No nausea, y Review of Systems Review of Systems: Passing urine Pain in the fracture site Physical Exam Physical Exam: GENERAL: Alert oriented, complains of pain on the left hip EYE EXAM: normal conjunctiva, PERRL and EOM's grossly intact OROPHARYNX: Dry mucosa LUNGS: Clear to auscultation. Normal chest wall mechanics, no w/r/r HEART: no murmurs, S1 normal and S2 normal ABDOMEN: abdomen soft, non-tender, normo-active bowel sounds, EXTREMITIES: No pitting edema. FROM, nml pulses b/l, left-sided hip pain NEURO EXAM: Alert oriented x3 Results & Data ([facility]) Vital Signs (Past 12 Hours) Vital Signs Temp Pulse Pulse Resp BP Pulse Ox 06/06/21 11:56 36.8 C 88 18 175/78 H 94 06/06/21 11:24 36.4 C L 82 16 154/98 H 96 06/06/21 11:15 84 16 154/85 H 96 06/06/21 11:05 36.5 C 87 16 136/72 94 06/06/21 07:16 37.0 C 91 H 18 134/70 95 06/06/21 05:24 36.5 C 87 16 134/76 96 Laboratory Results 06/06/21 12:28 06/06/21 12:28
[2021-06-06] MEDS: ACETAMINOPHEN 325 MG TAB PO PRN (16:09)
--- NOTE | 2021-06-06 20:11 | Operative Report (OR) ---
DATE OF PROCEDURE: 06/06/2021. PREOPERATIVE DIAGNOSES: 1. Left angulated periprosthetic intertrochanteric/subtrochanteric femur fracture. 2. Retained hardware, distal femoral supracondylar femoral fracture. POSTOPERATIVE DIAGNOSES: 1. Left angulated periprosthetic intertrochanteric/subtrochanteric femur fracture. 2. Retained hardware, distal femoral supracondylar femoral fracture. PROCEDURE: 1. Open reduction and internal fixation, left angulated periprosthetic intertrochanteric/subtrochant chelsey femur fracture with a Synthes intermediate 235 mm titanium trochanteric fixation nail with dista l locking screw. 2. Open removal of hardware, left femoral plate. 3. Revision fixation, open reduction and internal fixation, distal femoral fracture with insertion, titanium femoral screw. SURGEON: Xu Patel DO. FUNERAL CAR DRIVER: Mynor Staley PA-C, who was present for patient positioning, sterile prep and drape, management of retractors and instruments. He was present through the critical portions of the case i ncluding wound closure, application of sterile dressing and transport of the patient to recovery. ANESTHESIA: Spinal MAC, regional. SPECIMENS: None. DRAINS: None. COMPLICATIONS: None. BLOOD LOSS: 50 mL PERTINENT HISTORY: This is a 70-year-old female who sustained a fall injuring her left hip. She was unable to ambulate. She presented to [facility]. She was evaluated. Radiographs were obtained, noted to have a periprosthetic left subtrochanteric/intertrochanteric angulated femur fracture over a distal supracondylar femur fracture. The patient was then admitted to the [facility], stabilized for surgery and then scheduled for surgery as indicated. All potential risks, benefits, complications, alternatives, rehab potential for incomplete relief of symptoms, need for further surgery, DVT, PE, , persistent pain, swelling, scarring, weakness, ne urovascular injury, wound complications, hardware failure, nonunion, malunion, bone fracture were dis cussed with the patient. The patient decided to proceed with procedure as indicated. DESCRIPTION OF PROCEDURE: The patient also noted to be coronavirus positive, on isolation. She was wheeled directly from her patient room to the operative suite of the coronavirus unit. All personnel were in appropriate PPE and present. The patient then underwent spinal anesthetic and sedation and t ransferred to the fracture table. Left lower extremity was placed in the padded traction boot. Righ t lower extremity was placed in the well leg raymond. All bony prominences were properly padded and p rotected. Next, the left hip was then sterilely prepped and draped in the usual fashion. After surgical timeou t was performed, a 10 blade scalpel was used to make three percutaneous incisions along the lateral a spect of the femur at the site of prior screw insertion for the supracondylar femur fracture with the side plating. Careful dissection was performed with Metzenbaum scissors down to the level of the pl ate. Retractors were applied to retract soft tissue and the vastus lateralis musculature. The iliot ibial band was split in its mid fibers and the screws were identified respectively. Using a T20 driv er, the three screws were removed by hand and the holes were then gently curetted with a small bone c urette to encourage bleeding. The sites were irrigated with sterile saline until clear and this avery red the femoral canal for placement of the proximal trochanteric fixation nail, which was then addres sed with a 10 blade scalpel incision on the lateral aspect of the thigh proximal to the greater troch anter. The 10 blade scalpel incision was then deepened through skin and subcutaneous tissue. Meticu lous hemostasis was achieved with electrocautery. Full thickness skin flaps were developed. Fascia was then incised with a 10 blade scalpel and then u sing blunt dissection down to the level of the greater trochanter, the trochanter was palpated under direct visualization with fluoroscopic assistance. Guidepin was placed in the proximal greater troch anter, passing into the proximal femur under live fluoroscopic assistance. This was then followed by use of the opening reamer 17 mm, followed by placement of a ball-tip guide irving. Sequential reaming was performed up to a size 12.5 to allow passage of the trochanteric fixation nail. Also performed l amira fluoroscopic assistance to assure that the nail would pass past the proximal aspect of the distal femoral plate after removal of the screws. Next, the 235 mm trochanteric fixation nail was then ins erted over the ball-tip guide irving, ball-tip guide irving was then removed. The site was irrigated with sterile saline and under live fluoroscopic assistance, the appropriate level of placement was determi romulo in relation to the distal femoral hardware and the neck and head of the proximal femur. Next, th e lateral targeting arm was applied and then through a small stab incision in the lateral thigh, the guidepin for the spiral blade was then inserted in roughly the center-center position, taking a small allowance for movement due to placement of the previously placed hardware in the proximal femoral re gion with the periprosthetic fracture alignment. Next, after the guidepin was set and confirmed on AP and lateral projections, it was measured and not ed to be 80 mm in length for the titanium spiral blade, which was then drilled and inserted using a m allet. Next, the proximal locking screw was tightened. The nail was then loaded with compression. Next, the lateral targeting arm was then utilized to make a small stab incision for the distal lockin g in the nail, which was just proximal to the plate previously inserted, also titanium. Next, the dr reddy was used to drill the pilot boat deckhand hole for the screw. The screw was measured and then placed appropria tely to stabilize the trochanteric fixation nail. Next, using a 4.0 mm Synthes drill, the pilot boat deckhand hole was drilled just distal to the removed screw to achieve revision fixation for the distal femoral sup racondylar femur fracture. This was measured and then a locking screw was then applied to the plate to stabilize the plate to achieve six cortices of fixation. Next, final radiographs were obtained, noting near anatomic reduction and fixation of the periprosthe tic intertrochanteric subtrochanteric femur fracture with removal of the deep bone screws in the plat e and then revision of fixation for the distal femoral fracture. The surgical sites were then irriga fernie with sterile saline until clear. The iliotibial band and deep fascia was then closed using inter rupted #1 Vicryl suture. The dermis was closed using buried interrupted 2-0 Vicryl. Skin was closed using skin zoya. All incision sites were infiltrated with 0.5% Marcaine plain, approximately 25 mL and then sterile compressive dressing was applied. The patient was then awakened and transferred from the fracture table to the hospital bed. She was taken to recovery in her designated coronavirus recovery area in stable condition. Job ID: [id number]
[2021-06-06] MEDS: CYCLOBENZAPRINE HCL 5 MG TAB PO SCH (21:34)
[2021-06-07] MEDS: ACETAMINOPHEN 325 MG TAB PO PRN ×2 (04:18→08:41)
[2021-06-07 07:13] LABS: Basophils # (auto) 0.01 K/uL (0-0.2); Basophils % (auto) 0.2 %; Eosinophils # (auto) 0.03 K/uL (0-0.5); Eosinophils % (auto) 0.7 %; Hematocrit (blood only) 26.5 % (37-47); Hemoglobin 9.2 g/dL (12.0-16.0); Immature Granulocytes # (auto) 0.01 K/uL (0.00-0.02); Immature Granulocytes % (auto) 0.2 %; Lymphocytes # (auto) 0.52 K/uL (1.2-3.4); Lymphocytes % (auto) 12.6 %; Mean Corpuscular Hemoglobin 30.2 pg (25-34); Mean Corpuscular Hgb Conc 34.7 g/dL (32-36); Mean Corpuscular Volume 86.9 fL (80-100); Mean Platelet Volume 9.2 fL (7.4-10.4); Monocytes # (auto) 0.56 K/uL (0.11-0.59); Monocytes % (auto) 13.6 %; Neutrophils % (auto) 72.7 %; Platelet Count 223 K/uL (130-400); RDW Coefficient of Variation 13.5 % (11.5-14.5); RDW Standard Deviation 43.3 fL (36.4-46.3); Red Blood Count 3.05 M/uL (4.2-5.4); White Blood Count 4.13 K/uL (4.8-10.8)
[2021-06-07 07:38] LABS: BUN Creatinine Ratio 54.5 (10-20); Calcium 7.9 mg/dl (8.5-10.1); Creatinine Clr Calc Pharmacy 75.3 ml/min; Est GFR (African American) 110.1 ml/min; Potassium 3.8 mmol/L (3.5-5.1)
[2021-06-07] MEDS: UREA (UREA-NA) 15 GM PACK PO SCH ×2 (08:42→21:28)
[2021-06-07] MEDS: LOSARTAN POTASSIUM 50 MG TAB PO SCH (08:42)
[2021-06-07] MEDS: MONTELUKAST SODIUM 10 MG TABLET PO SCH (08:42)
[2021-06-07] MEDS: THIAMINE HCL 100 MG TAB PO SCH (08:42)
--- NOTE | 2021-06-07 10:37 | Nephrology Progress Note ---
Date of Service June 07, 2021 Assessment & Plan Admission and Anticipated Discharge Date Admission Date: June 05, 2021 Subjective Assessment & Plan (1) Hyponatremia: Plan: -She has Chronic SIADH picture an now worsened. na did not change at all with NS alone. very high Urine osm at 600+ --Fluid restrict at 1.5 lit -continue on urea 15 mg BID. -Safe correction would be 8 to 10 mmol in the next 24 hours. -Control her nausea and pain, as this on nonosmotic stimulus for ADH release which can worsen the hyponatremia. NS at 50/hr for 500 ml and give lasix 20 iv bid. Will need iv lasix to lower Urine osm by aquaresis. BMP twice daily for now. She will have low Serum Na but will try to get more than 130 (2) Acute pain of left hip: Plan: #Left intertrochanteric fracture -Orthopedics on board Subjective Patient seen and examined Patient currently reports left hip pain. No nausea, Review of Systems Review of Systems: Passing urine Pain in the fracture site Physical Exam Physical Exam: GENERAL: Alert oriented, complains of pain on the left hip EYE EXAM: normal conjunctiva, PERRL and EOM's grossly intact OROPHARYNX: Dry mucosa LUNGS: Clear to auscultation. Normal chest wall mechanics, no w/r/r HEART: no murmurs, S1 normal and S2 normal ABDOMEN: abdomen soft, non-tender, normo-active bowel sounds, EXTREMITIES: No pitting edema. FROM, nml pulses b/l, left-sided hip pain NEURO EXAM: Alert oriented x3 Results & Data ([facility]) Vital Signs (Past 12 Hours) Vital Signs Temp Pulse Pulse Resp BP Pulse Ox 06/07/21 07:40 36.8 C 103 H 20 104/79 96 06/07/21 07:25 36.8 C 104 H 14 134/77 96 06/07/21 04:33 36.6 C 106 H 16 154/75 H 95 06/06/21 23:13 36.4 C L 93 H 16 156/88 H 95
--- NOTE | 2021-06-07 10:43 | Orthopedic Progress Note ---
Date of Service June 07, 2021 Assessment & Plan (1) Hip fracture, intertrochanteric: Plan: Postop day #1 left trochanteric femoral nailing -PT/OT toe-touch weightbearing left lower extremity -Pain management as written -DVT prophylaxis: SCDs, Lovenox. -A.m. labs 9.2 from 10.4 yesterday. Likely due to surgical loss versus dilutional. -Discharge planning: Patient may require inpatient rehab pending PT OT eval's. Likely would need home health if she does go home. Admission and Anticipated Discharge Date Admission Date: June 05, 2021 Subjective Patient is postop day 1 left trochanteric femoral nailing. She is doing okay this morning. Does have some controlled. No other complaints currently. Patient denies chest pain, shortness of breath, headaches/dizziness, n/v/d Review of Systems Review of Systems: All systems reviewed & are unremarkable except as noted in Subjective Physical Exam Physical Exam: Dressings to left hip are clean dry and intact. No calf tenderness. Distally neurovascular status and sensation intact. Toes are mobile. Constitutional: WD/WN, vitals as above Results & Data ([facility]) Vital Signs (Past 12 Hours) Vital Signs Temp Pulse Pulse Resp BP Pulse Ox 06/07/21 07:40 36.8 C 103 H 20 104/79 96 06/07/21 07:25 36.8 C 104 H 14 134/77 96 06/07/21 04:33 36.6 C 106 H 16 154/75 H 95 06/06/21 23:13 36.4 C L 93 H 16 156/88 H 95 (1) Hip fracture, intertrochanteric Encounter type: initial encounter Fracture alignment: displaced Fracture type: closed Laterality: left Qualified Code(s): S72.142A - Displaced intertrochanteric fracture of left femur, initial encounter for closed fracture
[2021-06-07] MEDS: FUROSEMIDE INJ 20 MG/2 ML VIAL IV SCH ×2 (11:22→21:28)
[2021-06-07] MEDS: ERGOCALCIFEROL 50,000 UNITS 1250 MCG CAP PO SCH (11:22)
[2021-06-07] MEDS: SODIUM CHLORIDE 0.9% 1000ML 1,000 ML IV SCH (11:23)
[2021-06-07] MEDS: ENOXAPARIN INJ 40 MG/0.4 ML SYR SQ SCH (11:23)
[2021-06-07] MEDS: HYDROmorphone INJ 0.5 MG/0.5 ML SYR IV PRN (11:30)
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
[2021-06-07 18:46] LABS: BUN Creatinine Ratio 53.8 (10-20); Calcium 7.8 mg/dl (8.5-10.1); Creatinine Clr Calc Pharmacy 63.7 ml/min; Est GFR (African American) 104.3 ml/min; Potassium 3.7 mmol/L (3.5-5.1)
[2021-06-07] MEDS: oxyCODONE HCL IR 5 MG TAB (IMMEDIATE RELEASE) PO PRN (21:28)
[2021-06-07] MEDS: CYCLOBENZAPRINE HCL 5 MG TAB PO SCH (21:28)
[2021-06-08] MEDS: ACETAMINOPHEN 325 MG TAB PO PRN (00:03)
[2021-06-08] MEDS: SODIUM CHLORIDE 0.9% 1000ML 1,000 ML IV SCH (06:13)
[2021-06-08 06:45] LABS: Hematocrit (blood only) 23.1 % (37-47); Hemoglobin 8.1 g/dL (12.0-16.0); Mean Corpuscular Hemoglobin 30.2 pg (25-34); Mean Corpuscular Hgb Conc 35.1 g/dL (32-36); Mean Corpuscular Volume 86.2 fL (80-100); Mean Platelet Volume 8.7 fL (7.4-10.4); Platelet Count 215 K/uL (130-400); RDW Coefficient of Variation 13.6 % (11.5-14.5); RDW Standard Deviation 43.3 fL (36.4-46.3); Red Blood Count 2.68 M/uL (4.2-5.4); White Blood Count 3.67 K/uL (4.8-10.8)
[2021-06-08] MEDS: MONTELUKAST SODIUM 10 MG TABLET PO SCH (08:57)
[2021-06-08] MEDS: UREA (UREA-NA) 15 GM PACK PO SCH (08:57)
[2021-06-08] MEDS: LOSARTAN POTASSIUM 50 MG TAB PO SCH (08:57)
[2021-06-08] MEDS: FUROSEMIDE INJ 20 MG/2 ML VIAL IV SCH (08:57)
[2021-06-08] MEDS: THIAMINE HCL 100 MG TAB PO SCH (08:57)
[2021-06-08] MEDS: ONDANSETRON INJ 2 MG/ML 2 ML VIAL IV PRN (09:11)
[2021-06-08 09:14] LABS: BUN Creatinine Ratio 32.7 (10-20); Calcium 7.7 mg/dl (8.5-10.1); Creatinine Clr Calc Pharmacy 84.5 ml/min; Est GFR (African American) 114.4 ml/min; Est GFR (Non-African American) 98.7 ml/min; Potassium 3.5 mmol/L (3.5-5.1)
--- NOTE | 2021-06-08 10:38 | Nephrology Progress Note ---
Date of Service June 08, 2021 Assessment & Plan Admission and Anticipated Discharge Date Admission Date: June 05, 2021 Subjective Subjective Assessment & Plan (1) Hyponatremia: Plan: -She has Chronic SIADH picture an now worsened. na did not change at all with NS alone. very high Urine osm at 600+ --Fluid restrict at 1.5 lit -Stop urea 15 mg BID. Doing nothing and wont be able to use outpt anyway Start Salt tab 1 gm bid. Fluid limit 1200 ml per day. lasix 40 po bid. -Control her nausea and pain, as this on nonosmotic stimulus for ADH release which can worsen the hyponatremia. (2) Acute pain of left hip: Plan: #Left intertrochanteric fracture -Orthopedics on board Subjective Patient seen and examined Patient currently reports left hip pain. No nausea, Review of Systems Review of Systems: Passing urine Pain in the fracture site Physical Exam Physical Exam: GENERAL: Alert oriented, complains of pain on the left hip EYE EXAM: normal conjunctiva, PERRL and EOM's grossly intact OROPHARYNX: Dry mucosa LUNGS: Clear to auscultation. Normal chest wall mechanics, no w/r/r HEART: no murmurs, S1 normal and S2 normal ABDOMEN: abdomen soft, non-tender, normo-active bowel sounds, EXTREMITIES: No pitting edema. FROM, nml pulses b/l, left-sided hip pain NEURO EXAM: Alert oriented x3 Results & Data ([facility]) Vital Signs (Past 12 Hours) Vital Signs Temp Pulse Resp BP BP Pulse Ox 06/08/21 08:01 37.5 C 85 14 146/67 H 95 06/08/21 04:38 37.1 C 86 16 144/72 H 96
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
--- NOTE | 2021-06-08 12:06 | Orthopedic Progress Note ---
Date of Service June 08, 2021 Assessment & Plan (1) Hip fracture, intertrochanteric: Plan: Postop day #2 left trochanteric femoral nailing -PT/OT toe-touch weightbearing left lower extremity -Pain management as written -DVT prophylaxis: SCDs, Lovenox. -Labs as noted below. -Discharge planning: Patient may require inpatient rehab pending PT OT eval's. Likely would need home health if she does go home. Admission and Anticipated Discharge Date Admission Date: June 05, 2021 Subjective POD 2 Pt sitting in chair at bedside. Having some mild incisional pain after getting OOB. No other complaints. Physical Exam Physical Exam: Dressings are C/D/I. Thight with mild swelling but soft. Calves soft,NT. NV intact. Toes mobile. Results & Data ([facility]) Vital Signs (Past 12 Hours) Vital Signs Temp Pulse Resp BP BP Pulse Ox 06/08/21 08:01 37.5 C 85 14 146/67 H 95 06/08/21 04:38 37.1 C 86 16 144/72 H 96 Laboratory Results 06/08/21 06/08/21 06/07/21 Range/Units 06:02 05:59 18:13 WBC 3.67 L (4.8-10.8) K/uL RBC 2.68 L (4.2-5.4) M/uL Hgb 8.1 L (12.0-16.0) g/dL Hct 23.1 L (37-47) % MCV 86.2 (80-100) fL MCH 30.2 (25-34) pg MCHC 35.1 (32-36) g/dL RDW Std Deviation 43.3 (36.4-46.3) fL RDW Coeff of Kimberlee 13.6 (11.5-14.5) % Plt Count 215 (130-400) K/uL MPV 8.7 (7.4-10.4) fL Sodium 127 L 126 L (136-145) mmol/L Potassium 3.5 3.7 (3.5-5.1) mmol/L Chloride 94 L 93 L (98-107) mmol/L Carbon Dioxide 30 29 (21-32) mmol/L Anion Gap 3 4 (3-11) BUN 16 35 H (6-23) mg/dl Creatinine 0.49 L 0.65 (0.6-1.2) mg/dl Est Cr Clr Drug Dosing 84.5 63.7 ml/min Est GFR ( Amer) 114.4 104.3 ml/min Est GFR (Non-Af Amer) 98.7 90.0 ml/min BUN/Creatinine Ratio 32.7 H 53.8 H (10-20) Glucose 97 130 H (70-99(Fasting)) mg/dl Calcium 7.7 L 7.8 L (8.5-10.1) mg/dl (1) Hip fracture, intertrochanteric Encounter type: initial encounter Fracture alignment: displaced Fracture type: closed Laterality: left Qualified Code(s): S72.142A - Displaced intertrochanteric fracture of left femur, initial encounter for closed fracture
[2021-06-08] MEDS: oxyCODONE HCL IR 5 MG TAB (IMMEDIATE RELEASE) PO PRN ×2 (12:18→20:35)
[2021-06-08] MEDS: SODIUM CHLORIDE 1 GM TABLET PO SCH ×2 (12:18→20:34)
[2021-06-08] MEDS: ENOXAPARIN INJ 40 MG/0.4 ML SYR SQ SCH (12:18)
[2021-06-08] MEDS: FUROSEMIDE 40 MG TAB PO SCH ×2 (12:18→16:48)
[2021-06-08 17:06] LABS: BUN Creatinine Ratio 59.2 (10-20); Calcium 7.5 mg/dl (8.5-10.1); Creatinine Clr Calc Pharmacy 84.5 ml/min; Est GFR (African American) 114.4 ml/min; Est GFR (Non-African American) 98.7 ml/min; Potassium 3.4 mmol/L (3.5-5.1)
[2021-06-08] MEDS ORDERED: POTASSIUM CHLORIDE CRTAB 20 MEQ TABCR PO STA (17:18)
[2021-06-08] MEDS: CYCLOBENZAPRINE HCL 5 MG TAB PO SCH (20:34)
[2021-06-09] MEDS: SODIUM CHLORIDE 0.9% 1000ML 1,000 ML IV SCH (02:37)
[2021-06-09] MEDS: oxyCODONE HCL IR 5 MG TAB (IMMEDIATE RELEASE) PO PRN ×2 (04:39→20:38)
[2021-06-09 06:10] LABS: Calcium 7.5 mg/dl (8.5-10.1); Est GFR (African American) 116.8 ml/min; Est GFR (Non-African American) 100.8 ml/min
[2021-06-09 06:29] LABS: Hematocrit (blood only) 20.7 % (37-47); Mean Corpuscular Hemoglobin 29.4 pg (25-34); Mean Corpuscular Hgb Conc 33.8 g/dL (32-36); Mean Platelet Volume 8.5 fL (7.4-10.4); Platelet Count 226 K/uL (130-400); RDW Coefficient of Variation 13.7 % (11.5-14.5); RDW Standard Deviation 44.3 fL (36.4-46.3); Red Blood Count 2.38 M/uL (4.2-5.4); White Blood Count 3.73 K/uL (4.8-10.8)
[2021-06-09] MEDS: FUROSEMIDE 40 MG TAB PO SCH ×2 (08:02→17:21)
[2021-06-09] MEDS: SODIUM CHLORIDE 1 GM TABLET PO SCH ×2 (08:03→20:38)
[2021-06-09] MEDS: LOSARTAN POTASSIUM 50 MG TAB PO SCH (08:03)
[2021-06-09] MEDS: MONTELUKAST SODIUM 10 MG TABLET PO SCH (08:03)
[2021-06-09] MEDS: THIAMINE HCL 100 MG TAB PO SCH (08:04)
[2021-06-09] MEDS ORDERED: SODIUM CHLORIDE 0.9% 250 ML IV PRN ×2 (08:22→08:24)
[2021-06-09] MEDS: ONDANSETRON INJ 2 MG/ML 2 ML VIAL IV PRN (09:00)
--- NOTE | 2021-06-09 13:18 | Orthopedic Progress Note ---
Date of Service June 09, 2021 Assessment & Plan (1) Hip fracture, intertrochanteric: Plan: Postop day #3 left trochanteric femoral nailing - Acute blood loss anemia - being transfused today. -PT/OT toe-touch weightbearing left lower extremity -Pain management as written -DVT prophylaxis: SCDs, Lovenox. -Labs as noted below. -Discharge planning: Patient may require inpatient rehab pending PT OT eval's. Likely would need home health if she does go home. Orthopedics will sign off at this time. Instructions placed in DC section. Please call with any questions. Admission and Anticipated Discharge Date Admission Date: June 05, 2021 Subjective POD 3 Pt lying in bed awake and alert. No complaints today. Receiving 1 unit of PRBC's today. Pain controlled. Physical Exam Physical Exam: Incision appears benign. Scant serous drainage. Mild swelling of the thigh but soft. Calves soft,NT. NV intact. Results & Data ([facility]) Vital Signs (Past 12 Hours) Vital Signs Temp Pulse Pulse Resp BP BP Pulse Ox 06/09/21 12:25 37.2 C 76 20 116/70 97 06/09/21 11:25 37.4 C 79 20 117/67 94 06/09/21 10:55 37.4 C 87 18 105/64 96 06/09/21 10:40 37.3 C 86 16 105/64 94 06/09/21 10:24 36.7 C 91 H 18 113/67 93 06/09/21 07:56 36.9 C 81 18 122/70 97 06/09/21 05:14 37.4 C 88 18 115/71 95 Laboratory Results 06/09/21 06/09/21 06/09/21 Range/Units 08:41 05:35 05:35 WBC 3.73 L (4.8-10.8) K/uL RBC 2.38 L (4.2-5.4) M/uL Hgb 7.0 L (12.0-16.0) g/dL Hct 20.7 L* (37-47) % MCV 87.0 (80-100) fL MCH 29.4 (25-34) pg MCHC 33.8 (32-36) g/dL RDW Std Deviation 44.3 (36.4-46.3) fL RDW Coeff of Kimberlee 13.7 (11.5-14.5) % Plt Count 226 (130-400) K/uL MPV 8.5 (7.4-10.4) fL Sodium (136-145) mmol/L Potassium (3.5-5.1) mmol/L Chloride (98-107) mmol/L Carbon Dioxide (21-32) mmol/L Anion Gap (3-11) BUN (6-23) mg/dl Creatinine (0.6-1.2) mg/dl Est Cr Clr Drug Dosing ml/min Est GFR ( Amer) ml/min Est GFR (Non-Af Amer) ml/min BUN/Creatinine Ratio (10-20) Glucose (70-99(Fasting)) mg/dl Calcium (8.5-10.1) mg/dl Blood Type A Positive Blood Type Recheck A Positive Antibody Screen NEGATIVE Crossmatch See Detail 06/09/21 06/08/21 Range/Units 05:35 16:20 WBC (4.8-10.8) K/uL RBC (4.2-5.4) M/uL Hgb (12.0-16.0) g/dL Hct (37-47) % MCV (80-100) fL MCH (25-34) pg MCHC (32-36) g/dL RDW Std Deviation (36.4-46.3) fL RDW Coeff of Kimberlee (11.5-14.5) % Plt Count (130-400) K/uL MPV (7.4-10.4) fL Sodium 126 L 126 L (136-145) mmol/L Potassium 4.0 3.4 L (3.5-5.1) mmol/L Chloride 93 L 90 L (98-107) mmol/L Carbon Dioxide 30 30 (21-32) mmol/L Anion Gap 3 6 (3-11) BUN 17 29 H (6-23) mg/dl Creatinine 0.46 L 0.49 L (0.6-1.2) mg/dl Est Cr Clr Drug Dosing 90.0 84.5 ml/min Est GFR ( Amer) 116.8 114.4 ml/min Est GFR (Non-Af Amer) 100.8 98.7 ml/min BUN/Creatinine Ratio 37.0 H 59.2 H (10-20) Glucose 100 H 147 H (70-99(Fasting)) mg/dl Calcium 7.5 L 7.5 L (8.5-10.1) mg/dl Blood Type Blood Type Recheck Antibody Screen Crossmatch (1) Hip fracture, intertrochanteric Encounter type: initial encounter Fracture alignment: displaced Fracture type: closed Laterality: left Qualified Code(s): S72.142A - Displaced intertrochanteric fracture of left femur, initial encounter for closed fracture
--- NOTE | 2021-06-09 13:20 | Nephrology Progress Note ---
Date of Service June 09, 2021 Assessment & Plan Admission and Anticipated Discharge Date Admission Date: June 05, 2021 Subjective Assessment & Plan (1) Hyponatremia: Plan: -She has Chronic SIADH picture and now worsened in the setting of fracture/Pain. na did not change at all with NS alone. very high Urine osm at 600+ -Stop urea 15 mg BID. Doing nothing and wont be able to use outpt anyway Start Salt tab 1 gm bid. Fluid limit 1200 ml per day. lasix 40 po bid. Stop NS. Even this is hard given her colostomy and chronic status -Control her nausea and pain, as this is nonosmotic stimulus for ADH release which can worsen the hyponatremia. (2) Anemia--hgb down to 7. Consider pRBC if Hgb drops below 7. Subjective Patient seen and examined Patient currently reports left hip pain. No nausea, Review of Systems Review of Systems: Passing urine Pain in the fracture site Physical Exam Physical Exam: GENERAL: Alert oriented, complains of pain on the left hip EYE EXAM: normal conjunctiva, PERRL and EOM's grossly intact OROPHARYNX: Dry mucosa LUNGS: Clear to auscultation. Normal chest wall mechanics, no w/r/r HEART: no murmurs, S1 normal and S2 normal ABDOMEN: abdomen soft, non-tender, normo-active bowel sounds, EXTREMITIES: No pitting edema. FROM, nml pulses b/l, left-sided hip pain NEURO EXAM: Alert oriented x3 Results & Data ([facility]) Vital Signs (Past 12 Hours) Vital Signs Temp Pulse Pulse Resp BP BP Pulse Ox 06/09/21 12:25 37.2 C 76 20 116/70 97 06/09/21 11:25 37.4 C 79 20 117/67 94 06/09/21 10:55 37.4 C 87 18 105/64 96 06/09/21 10:40 37.3 C 86 16 105/64 94 06/09/21 10:24 36.7 C 91 H 18 113/67 93 06/09/21 07:56 36.9 C 81 18 122/70 97 06/09/21 05:14 37.4 C 88 18 115/71 95
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
[2021-06-09] MEDS: ACETAMINOPHEN 325 MG TAB PO PRN (16:04)
[2021-06-09] MEDS: CYCLOBENZAPRINE HCL 5 MG TAB PO SCH (20:38)
[2021-06-10] MEDS: oxyCODONE HCL IR 5 MG TAB (IMMEDIATE RELEASE) PO PRN ×3 (04:21→20:42)
[2021-06-10 06:56] LABS: BUN Creatinine Ratio 25.6 (10-20); Calcium 7.9 mg/dl (8.5-10.1); Creatinine Clr Calc Pharmacy 96.3 ml/min; Est GFR (African American) 119.4 ml/min; Est GFR (Non-African American) 103.1 ml/min; Potassium 3.8 mmol/L (3.5-5.1)
[2021-06-10 06:58] LABS: Hematocrit (blood only) 26.7 % (37-47); Hemoglobin 9.2 g/dL (12.0-16.0)
[2021-06-10] MEDS: LOSARTAN POTASSIUM 50 MG TAB PO SCH (07:53)
[2021-06-10] MEDS: THIAMINE HCL 100 MG TAB PO SCH (07:53)
[2021-06-10] MEDS: MONTELUKAST SODIUM 10 MG TABLET PO SCH (07:53)
[2021-06-10] MEDS: FUROSEMIDE 40 MG TAB PO SCH ×2 (07:54→17:00)
[2021-06-10] MEDS: SODIUM CHLORIDE 1 GM TABLET PO SCH ×2 (07:54→20:42)
[2021-06-10] MEDS: ACETAMINOPHEN 325 MG TAB PO PRN ×3 (08:17→22:47)
--- NOTE | 2021-06-10 11:03 | Nephrology Progress Note ---
Date of Service June 10, 2021 Assessment & Plan Admission and Anticipated Discharge Date Admission Date: June 05, 2021 Subjective Subjective Assessment & Plan (1) Hyponatremia: Plan: -She has Chronic SIADH picture and now worsened in the setting of fracture/Pain. na did not change at all with NS alone. very high Urine osm at 600+ -Stop urea 15 mg BID. Doing nothing and wont be able to use outpt anyway. Salt tab 1 gm bid. Fluid limit 1200 ml per day. Can do this for outpt. -Control her nausea and pain, as this is nonosmotic stimulus for ADH release which can worsen the hyponatremia. (2) Anemia--hgb down to 7. Consider pRBC if Hgb drops below 7. Subjective Patient seen and examined Patient currently reports left hip pain. No nausea, Review of Systems Review of Systems: Passing urine Pain in the fracture site Physical Exam Physical Exam: GENERAL: Alert oriented, complains of pain on the left hip EYE EXAM: normal conjunctiva, PERRL and EOM's grossly intact OROPHARYNX: Dry mucosa LUNGS: Clear to auscultation. Normal chest wall mechanics, no w/r/r HEART: no murmurs, S1 normal and S2 normal ABDOMEN: abdomen soft, non-tender, normo-active bowel sounds, EXTREMITIES: No pitting edema. FROM, nml pulses b/l, left-sided hip pain NEURO EXAM: Alert oriented x3 Results & Data ([facility]) Vital Signs (Past 12 Hours) Vital Signs Temp Pulse Pulse Resp BP BP Pulse Ox 06/10/21 07:52 37.1 C 80 16 145/71 H 95 06/10/21 03:15 36.8 C 81 17 147/74 H 96 06/09/21 23:22 37.1 C 85 18 157/75 H 98
[2021-06-10] MEDS: ENOXAPARIN INJ 40 MG/0.4 ML SYR SQ SCH (11:33)
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
[2021-06-10] MEDS: CYCLOBENZAPRINE HCL 5 MG TAB PO SCH (20:42)
[2021-06-11 06:58] LABS: Hematocrit (blood only) 27.6 % (37-47); Hemoglobin 9.4 g/dL (12.0-16.0)
[2021-06-11 07:23] LABS: BUN Creatinine Ratio 23.3 (10-20); Calcium 8.2 mg/dl (8.5-10.1); Creatinine Clr Calc Pharmacy 96.3 ml/min; Est GFR (African American) 119.4 ml/min; Est GFR (Non-African American) 103.1 ml/min
[2021-06-11] MEDS: ACETAMINOPHEN 325 MG TAB PO PRN ×2 (07:58→18:37)
[2021-06-11] MEDS: SODIUM CHLORIDE 1 GM TABLET PO SCH ×2 (07:58→21:04)
[2021-06-11] MEDS: THIAMINE HCL 100 MG TAB PO SCH (07:59)
[2021-06-11] MEDS: MONTELUKAST SODIUM 10 MG TABLET PO SCH (07:59)
[2021-06-11] MEDS: FUROSEMIDE 40 MG TAB PO SCH ×2 (07:59→16:02)
[2021-06-11] MEDS: LOSARTAN POTASSIUM 50 MG TAB PO SCH (07:59)
[2021-06-11] MEDS: oxyCODONE HCL IR 5 MG TAB (IMMEDIATE RELEASE) PO PRN ×2 (09:55→21:04)
[2021-06-11] MEDS: ENOXAPARIN INJ 40 MG/0.4 ML SYR SQ SCH (10:34)
--- NOTE | 2021-06-11 11:56 | Nephrology Progress Note ---
Date of Service June 11, 2021 Assessment & Plan Admission and Anticipated Discharge Date Admission Date: June 05, 2021 Subjective Assessment & Plan (1) Hyponatremia: Plan: -She has Chronic SIADH picture and now worsened in the setting of fracture/Pain. na did not change at all with NS alone. very high Urine osm at 600+ Stop urea 15 mg BID. Did nothing and wont be able to use outpt anyway. Salt tab 1 gm bid. lasix 40 bid while inpt Fluid limit 1200 ml per day. Control her nausea and pain, as this is nonosmotic stimulus for ADH release whi ch can worsen the hyponatremia. She has Colostomy with chronic Diarrhea so i dont really want to use lasix outpt. Very resistant SIADH. (2) Anemia--hgb down to 7. Consider pRBC if Hgb drops below 7. Subjective Patient seen and examined Patient currently reports left hip pain. No nausea, Review of Systems Review of Systems: Passing urine Pain in the fracture site Physical Exam Physical Exam: GENERAL: Alert oriented, complains of pain on the left hip EYE EXAM: normal conjunctiva, PERRL and EOM's grossly intact OROPHARYNX: Dry mucosa LUNGS: Clear to auscultation. Normal chest wall mechanics, no w/r/r HEART: no murmurs, S1 normal and S2 normal ABDOMEN: abdomen soft, non-tender, normo-active bowel sounds, EXTREMITIES: No pitting edema. FROM, nml pulses b/l, left-sided hip pain NEURO EXAM: Alert oriented x3 Results & Data ([facility]) Vital Signs (Past 12 Hours) Vital Signs Temp Pulse Resp BP BP Pulse Ox 06/11/21 10:42 36.8 C 83 16 160/71 H 96 06/11/21 06:23 37.0 C 76 20 164/73 H 95 06/11/21 05:32 36.5 C 83 18 154/82 H 94
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
[2021-06-11] MEDS: CYCLOBENZAPRINE HCL 5 MG TAB PO SCH (21:04)
[2021-06-12] MEDS: oxyCODONE HCL IR 5 MG TAB (IMMEDIATE RELEASE) PO PRN ×4 (03:34→22:34)
[2021-06-12 07:47] LABS: Hematocrit (blood only) 28.2 % (37-47); Hemoglobin 9.5 g/dL (12.0-16.0)
[2021-06-12 08:06] LABS: BUN Creatinine Ratio 27.5 (10-20); Calcium 7.9 mg/dl (8.5-10.1); Creatinine Clr Calc Pharmacy 103.5 ml/min; Est GFR (African American) 122.3 ml/min; Est GFR (Non-African American) 105.5 ml/min; Potassium 4.2 mmol/L (3.5-5.1)
[2021-06-12] MEDS: THIAMINE HCL 100 MG TAB PO SCH (08:52)
[2021-06-12] MEDS: LOSARTAN POTASSIUM 50 MG TAB PO SCH (08:52)
[2021-06-12] MEDS: FUROSEMIDE 40 MG TAB PO SCH ×2 (08:52→17:03)
[2021-06-12] MEDS: MONTELUKAST SODIUM 10 MG TABLET PO SCH (08:52)
[2021-06-12] MEDS: ENOXAPARIN INJ 40 MG/0.4 ML SYR SQ SCH (11:27)
[2021-06-12] MEDS: SODIUM CHLORIDE 1 GM TABLET PO SCH ×3 (11:27→20:27)
--- NOTE | 2021-06-12 11:56 | Nephrology Progress Note ---
Date of Service June 12, 2021 Assessment & Plan (1) Hyponatremia: Plan: -Urine and plasma studies point towards a SIADH picture -Sna has remained at 125. -Fluid restrict at 1.2 lit -Increase sodium chloride to 1 g 3 times daily -Continue Lasix -Control her nausea and pain, as this on nonosmotic stimulus for ADH release which can worsen the hyponatremia. (2) Acute pain of left hip: Plan: #Left intertrochanteric fracture -Orthopedics on board Admission and Anticipated Discharge Date Admission Date: June 05, 2021 Subjective Seen in follow-up for hyponatremia. She feels better. She is eating more. No shortness of breath. Left leg is swollen Review of Systems Review of Systems: All other systems were reviewed and negative except as noted in HPI Physical Exam Physical Exam: General exam: Appears comfortable, no acute distress HEENT: Pupils are equal and reactive to light Neck: No JVD, neck is supple trachea is midline Respiratory system: Clear breath sounds bilaterally. Gastrointestinal: Abdomen is soft, non distended, non tender, bowel sounds are present CVS: Regular rate and rhythm. No murmurs, rubs or gallops Musculoskeletal: No joint or muscle tenderness Extremities: Non tender, no edema, peripheral pulses are present Neuro: Oriented, no tremors, no focal neurological deficits Skin: No rashes Results & Data ([facility]) Vital Signs (Past 12 Hours) Vital Signs Temp Pulse Resp BP Pulse Ox 06/12/21 08:53 36.6 C 84 16 124/73 96 Laboratory Results 06/12/21 07:33
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
[2021-06-12] MEDS: ACETAMINOPHEN 325 MG TAB PO PRN ×2 (17:02→20:48)
[2021-06-12] MEDS: CYCLOBENZAPRINE HCL 5 MG TAB PO SCH (20:27)
[2021-06-13] MEDS: oxyCODONE HCL IR 5 MG TAB (IMMEDIATE RELEASE) PO PRN ×3 (04:04→21:42)
[2021-06-13 06:47] LABS: BUN Creatinine Ratio 28.3 (10-20); Calcium 8.3 mg/dl (8.5-10.1); Est GFR (African American) 116.8 ml/min; Est GFR (Non-African American) 100.8 ml/min; Potassium 3.8 mmol/L (3.5-5.1)
[2021-06-13] MEDS: MONTELUKAST SODIUM 10 MG TABLET PO SCH (09:10)
[2021-06-13] MEDS: LOSARTAN POTASSIUM 50 MG TAB PO SCH (09:10)
[2021-06-13] MEDS: THIAMINE HCL 100 MG TAB PO SCH (09:10)
[2021-06-13] MEDS: FUROSEMIDE 40 MG TAB PO SCH ×2 (09:10→17:29)
[2021-06-13] MEDS: SODIUM CHLORIDE 1 GM TABLET PO SCH ×3 (09:11→21:41)
--- NOTE | 2021-06-13 09:27 | Nephrology Progress Note ---
Date of Service June 13, 2021 Assessment & Plan (1) Hyponatremia: Plan: -Urine and plasma studies point towards a SIADH picture. Sodium up to 127 today from 125 yesterday -Fluid restrict at 1.2 lit -Continue sodium chloride to 1 g 3 times daily -Continue Lasix -Control her nausea and pain, as this on nonosmotic stimulus for ADH release which can worsen the hyponatremia. (2) Acute pain of left hip: Plan: #Left intertrochanteric fracture status post ORIF -Optimize pain control Admission and Anticipated Discharge Date Admission Date: June 05, 2021 Subjective Seen in follow-up for hyponatremia. She feels a little better today. She is eating better. Did not sleep well last night. No shortness of breath. Sodium is up to 127 Review of Systems Review of Systems: All other systems were reviewed and negative except as noted in HPI Physical Exam Physical Exam: General exam: Appears comfortable, no acute distress HEENT: Pupils are equal and reactive to light Neck: No JVD, neck is supple trachea is midline Respiratory system: Clear breath sounds bilaterally. Gastrointestinal: Abdomen is soft, non distended, non tender, bowel sounds are present CVS: Regular rate and rhythm. No murmurs, rubs or gallops Musculoskeletal: No joint or muscle tenderness Extremities: Non tender, no edema, peripheral pulses are present Neuro: Oriented, no tremors, no focal neurological deficits Skin: No rashes Results & Data ([facility]) Vital Signs (Past 12 Hours) Vital Signs Temp Pulse Pulse Resp BP Pulse Ox 06/13/21 08:06 37.0 C 81 16 145/77 H 95 06/12/21 22:33 36.7 C 75 14 136/78 97 Laboratory Results 06/13/21 05:17
[2021-06-13] MEDS: ACETAMINOPHEN 325 MG TAB PO PRN ×2 (11:50→18:23)
[2021-06-13] MEDS: ENOXAPARIN INJ 40 MG/0.4 ML SYR SQ SCH (11:51)
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
[2021-06-13] MEDS: CYCLOBENZAPRINE HCL 5 MG TAB PO SCH (21:42)
[2021-06-14] MEDS: oxyCODONE HCL IR 5 MG TAB (IMMEDIATE RELEASE) PO PRN ×4 (02:54→22:50)
[2021-06-14 07:55] LABS: BUN Creatinine Ratio 29.5 (10-20); Creatinine Clr Calc Pharmacy 94.1 ml/min; Est GFR (African American) 118.5 ml/min; Est GFR (Non-African American) 102.3 ml/min; Potassium 4.1 mmol/L (3.5-5.1)
[2021-06-14] MEDS: SODIUM CHLORIDE 1 GM TABLET PO SCH ×3 (08:18→19:59)
[2021-06-14] MEDS: MONTELUKAST SODIUM 10 MG TABLET PO SCH (08:18)
[2021-06-14] MEDS: THIAMINE HCL 100 MG TAB PO SCH (08:18)
[2021-06-14] MEDS: FUROSEMIDE 40 MG TAB PO SCH ×2 (08:19→16:43)
[2021-06-14] MEDS: LOSARTAN POTASSIUM 50 MG TAB PO SCH (08:19)
--- NOTE | 2021-06-14 09:10 | Nephrology Progress Note ---
Date of Service June 14, 2021 Assessment & Plan (1) Hyponatremia: Plan: -Urine and plasma studies point towards SIADH picture. Sodium improving slowly, up to 128 today from 127 06/13 and long plateau since admission mid 120s (admitted at 126 on 06/05). As OP her sNa has run about 130 over past year; would aim for achieving this and holding it 24 hr before d/c -Fluid restrict at 1.2 lit -Continue sodium chloride to 1 g 3 times daily -Continue Lasix -Control her nausea and pain, as this on nonosmotic ADH stimulus which can worsen the hyponatremia. (2) Acute pain of left hip: Plan: #Left intertrochanteric fracture status post ORIF -Optimize pain control Admission and Anticipated Discharge Date Admission Date: June 05, 2021 Subjective no interval clinical events; hoping for d/c to [facility]; marked L leg pain when I saw her on rounds at about 1140; no n/v, no sob; some L knee swelling else none Review of Systems Review of Systems: All systems reviewed & are unremarkable except as noted in Subjective Physical Exam Constitutional: well developed and well nourished Eyes: EOM intact bilaterally ENMT: Ears: no external ear abnormality Nose: no external nose abnormality Mouth: + dry oral mucous membranes Neck: no nuchal rigidity Respiratory: normal respiratory effort Auscultation: + diminished lung sounds Cardiovascular: Rate/Rhythm: regular rate and regular rhythm Extremities: + edema (trace aroudn L knee w/o effusion) Gastrointestinal (Abdomen): Inspection/Auscultation: normal bowel sounds (colostomy present) Percussion/Palpation: abdomen soft; abdomen nontender Musculoskeletal: Extremities: strength 5/5 throughout Skin: no rashes, warm and dry Neurologic: howard, fluent speech, no tremor Psychiatric: Orientation: oriented x 3 Results & Data ([facility]) Vital Signs (Past 12 Hours) Vital Signs Temp Pulse Resp BP Pulse Ox 06/14/21 08:27 36.9 C 06/14/21 08:15 86 18 160/69 H 96 06/13/21 22:40 36.7 C 79 16 139/71 97 Laboratory Results 06/12/21 07:33 06/14/21 07:13
[2021-06-14] MEDS: ERGOCALCIFEROL 50,000 UNITS 1250 MCG CAP PO SCH (10:21)
[2021-06-14] MEDS: ENOXAPARIN INJ 40 MG/0.4 ML SYR SQ SCH (10:21)
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
[2021-06-14] MEDS: PYRIDOXINE HCL 50 MG TAB PO SCH ×2 (12:01→16:43)
[2021-06-14] MEDS: CYCLOBENZAPRINE HCL 5 MG TAB PO SCH (20:00)
[2021-06-15] MEDS: THIAMINE HCL 100 MG TAB PO SCH (07:34)
[2021-06-15] MEDS: SODIUM CHLORIDE 1 GM TABLET PO SCH ×3 (07:34→21:14)
[2021-06-15] MEDS: LOSARTAN POTASSIUM 50 MG TAB PO SCH (07:34)
[2021-06-15] MEDS: FUROSEMIDE 40 MG TAB PO SCH ×2 (07:35→17:19)
[2021-06-15] MEDS: PYRIDOXINE HCL 50 MG TAB PO SCH ×3 (07:35→17:19)
[2021-06-15] MEDS: MONTELUKAST SODIUM 10 MG TABLET PO SCH (07:35)
[2021-06-15] MEDS: oxyCODONE HCL IR 5 MG TAB (IMMEDIATE RELEASE) PO PRN ×2 (07:47→21:27)
[2021-06-15 08:09] LABS: Hematocrit (blood only) 31.3 % (37-47); Hemoglobin 10.5 g/dL (12.0-16.0); Mean Corpuscular Hemoglobin 30.1 pg (25-34); Mean Corpuscular Hgb Conc 33.5 g/dL (32-36); Mean Corpuscular Volume 89.7 fL (80-100); Mean Platelet Volume 7.8 fL (7.4-10.4); Platelet Count 565 K/uL (130-400); RDW Coefficient of Variation 14.4 % (11.5-14.5); RDW Standard Deviation 47.1 fL (36.4-46.3); Red Blood Count 3.49 M/uL (4.2-5.4); White Blood Count 4.85 K/uL (4.8-10.8)
--- NOTE | 2021-06-15 08:25 | Nephrology Progress Note ---
Date of Service June 15, 2021 Assessment & Plan (1) Hyponatremia: Plan: -Urine and plasma studies point towards SIADH picture. Sodium stable at 127- 128; had been improving slowly, up to 128 / from 127 06/13 and long plateau since admission mid 120s (admitted at 126 on 06/05). As OP her sNa has run about 130 over past year; would aim for achieving at least 128-129 and holding it 24 hr before d/c -Fluid restrict at 1.2 lit; PROT SHAkes don't count toward this >1600 labs ordered to include serum osm, urine osm, rd urine sodium -Continue sodium chloride to 1 g 3 times daily -Continue Lasix 40 mg bid17 -started Madsen to get 2 doses today -Control her nausea and pain, as this on nonosmotic ADH stimulus which can worsen the hyponatremia. Discharge recommendations -continue above medications at discharge; madsen may be costly -weekly bmp to be ordered by nephro nurse at hospital discharge x 3 checks -hospital discharge appt with me in CKD clinic (2) Acute pain of left hip: Plan: #Left intertrochanteric fracture status post ORIF -Optimize pain control Admission and Anticipated Discharge Date Admission Date: June 05, 2021 Subjective no c/o except feels fluid limit not counted appropriately; pain controlled; no N; chronic dry mouth Review of Systems Review of Systems: All systems reviewed & are unremarkable except as noted in Subjective Physical Exam Constitutional: well developed and well nourished Eyes: EOM intact bilaterally ENMT: Ears: no external ear abnormality Nose: no external nose abnormality Mouth: + dry oral mucous membranes Neck: no nuchal rigidity Respiratory: normal respiratory effort Auscultation: + diminished lung sounds Cardiovascular: Rate/Rhythm: regular rate and regular rhythm Extremities: + edema (trace aroudn L knee w/o effusion) Gastrointestinal (Abdomen): Inspection/Auscultation: normal bowel sounds (colostomy present) Percussion/Palpation: abdomen soft; abdomen nontender Musculoskeletal: Extremities: strength 5/5 throughout Skin: no rashes, warm and dry (incisions cdi) Psychiatric: Orientation: oriented x 3 Results & Data ([facility]) Vital Signs (Past 12 Hours) Vital Signs Temp Pulse Resp BP Pulse Ox 06/15/21 07:49 36.8 C 84 18 174/83 H 98 Laboratory Results 06/15/21 07:46 06/15/21 07:46
[2021-06-15 08:43] LABS: BUN Creatinine Ratio 21.2 (10-20); Calcium 8.6 mg/dl (8.5-10.1); Creatinine Clr Calc Pharmacy 79.6 ml/min; Est GFR (African American) 112.2 ml/min; Est GFR (Non-African American) 96.8 ml/min; Potassium 4.4 mmol/L (3.5-5.1)
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
[2021-06-15] MEDS: ENOXAPARIN INJ 40 MG/0.4 ML SYR SQ SCH (12:25)
[2021-06-15] MEDS: ACETAMINOPHEN 500 MG TAB PO SCH ×3 (12:37→21:14)
[2021-06-15] MEDS: UREA (UREA-NA) 15 GM PACK PO SCH ×2 (13:31→21:15)
[2021-06-15 16:13] LABS: BUN Creatinine Ratio 60.3 (10-20); Calcium 8.9 mg/dl (8.5-10.1); Creatinine Clr Calc Pharmacy 71.4 ml/min; Est GFR (African American) 108.2 ml/min; Est GFR (Non-African American) 93.4 ml/min; Potassium 4.6 mmol/L (3.5-5.1)
[2021-06-15] MEDS: CYCLOBENZAPRINE HCL 5 MG TAB PO SCH (21:14)
[2021-06-16] MEDS: oxyCODONE HCL IR 5 MG TAB (IMMEDIATE RELEASE) PO PRN ×2 (03:42→11:23)
[2021-06-16 08:23] LABS: BUN Creatinine Ratio 58.2 (10-20); Calcium 9.1 mg/dl (8.5-10.1); Creatinine Clr Calc Pharmacy 75.3 ml/min; Est GFR (African American) 110.1 ml/min; Potassium 4.7 mmol/L (3.5-5.1)
[2021-06-16] MEDS: ACETAMINOPHEN 500 MG TAB PO SCH ×4 (08:26→19:41)
[2021-06-16] MEDS: MONTELUKAST SODIUM 10 MG TABLET PO SCH (08:26)
[2021-06-16] MEDS: UREA (UREA-NA) 15 GM PACK PO SCH ×2 (08:26→19:42)
[2021-06-16] MEDS: FUROSEMIDE 40 MG TAB PO SCH (08:26)
[2021-06-16] MEDS: THIAMINE HCL 100 MG TAB PO SCH (08:26)
[2021-06-16] MEDS: PYRIDOXINE HCL 50 MG TAB PO SCH ×3 (08:27→17:15)
[2021-06-16] MEDS: SODIUM CHLORIDE 1 GM TABLET PO SCH ×3 (08:27→19:41)
[2021-06-16] MEDS: LOSARTAN POTASSIUM 50 MG TAB PO SCH (08:27)
--- NOTE | 2021-06-16 10:02 | Nephrology Progress Note ---
Date of Service June 16, 2021 Assessment & Plan (1) Hyponatremia: Plan: Urine and plasma studies point toward SIADH picture. Sodium stable at 127-128; had been improving slowly, up to 128 06/14 from 127 06/13 and long plateau since admission mid 120s (admitted at 126 on 06/05). As OP her sNa has run about 130 over past year; would aim for achieving at least 128-129 and holding it 24 hr before d/c though w/ normal osmolality this is not obligate -continue to Fluid restrict at 1.2 lit; PROT SHAkes don't count toward this -Continue sodium chloride to 1 g 3 times daily -increased lasix to 80 mg bid17 po w/ extra dose 80 mg today (so 80 mg dosed 2x today in addition to 40 mg dose already given this am) -started Madsen 06/15, to continue -Control her nausea and pain, as this on nonosmotic ADH stimulus which can worsen the hyponatremia. Discharge recommendations (in case she is d/c today; I will cont to follow her if not d/c) -continue above medications at discharge; madsen may be costly/hard to find > if so ok to d/c this -weekly bmp to be ordered by nephro nurse at hospital discharge x 3 checks -hospital discharge appt (not a clinic follow up appt) with me in CKD clinic in 3-4 wks pls care coordinated w/ Dr Martini (2) Acute pain of left hip: Plan: #Left intertrochanteric fracture status post ORIF -Optimize pain control Admission and Anticipated Discharge Date Admission Date: June 05, 2021 Subjective some pain this am in L leg but getter now ; some N last evening. amador out now and pt getting up w/ asst to void Review of Systems Review of Systems: All systems reviewed & are unremarkable except as noted in Subjective Physical Exam Constitutional: well developed and well nourished Eyes: EOM intact bilaterally ENMT: Ears: no external ear abnormality Nose: no external nose abnormality Mouth: + dry oral mucous membranes Neck: no nuchal rigidity Respiratory: normal respiratory effort Auscultation: + diminished lung sounds Cardiovascular: Rate/Rhythm: regular rate and regular rhythm Extremities: + edema (trace aroudn L knee w/o effusion) Gastrointestinal (Abdomen): Inspection/Auscultation: normal bowel sounds (colostomy present) Percussion/Palpation: abdomen soft; abdomen nontender Musculoskeletal: Extremities: strength 5/5 throughout Skin: no rashes, warm and dry (incisions cdi) Psychiatric: Orientation: oriented x 3 Results & Data ([facility]) Vital Signs (Past 12 Hours) Vital Signs Temp Pulse Resp BP Pulse Ox 06/16/21 08:20 36.7 C 77 16 176/76 H 97 06/15/21 22:28 36.5 C 76 16 154/80 H 98 Laboratory Results 06/15/21 07:46 06/16/21 07:29 osms serum/ urine and al urine chem reviewed
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
[2021-06-16] MEDS: FUROSEMIDE 80 MG TAB PO SCH ×2 (11:23→17:17)
[2021-06-16] MEDS: ENOXAPARIN INJ 40 MG/0.4 ML SYR SQ SCH (11:24)
[2021-06-16] MEDS: CYCLOBENZAPRINE HCL 5 MG TAB PO SCH (19:42)
[2021-06-17] MEDS: oxyCODONE HCL IR 5 MG TAB (IMMEDIATE RELEASE) PO PRN ×2 (08:06→21:10)
[2021-06-17] MEDS: MONTELUKAST SODIUM 10 MG TABLET PO SCH (08:08)
[2021-06-17] MEDS: THIAMINE HCL 100 MG TAB PO SCH (08:08)
[2021-06-17] MEDS: LOSARTAN POTASSIUM 50 MG TAB PO SCH (08:08)
[2021-06-17] MEDS: FUROSEMIDE 80 MG TAB PO SCH ×2 (08:08→17:11)
[2021-06-17] MEDS: UREA (UREA-NA) 15 GM PACK PO SCH ×2 (08:08→21:10)
[2021-06-17] MEDS: ACETAMINOPHEN 500 MG TAB PO SCH ×4 (08:08→21:10)
[2021-06-17] MEDS: PYRIDOXINE HCL 50 MG TAB PO SCH ×3 (08:08→17:11)
[2021-06-17] MEDS: SODIUM CHLORIDE 1 GM TABLET PO SCH ×3 (08:08→21:10)
[2021-06-17 09:08] LABS: BUN Creatinine Ratio 60.3 (10-20); Calcium 8.8 mg/dl (8.5-10.1); Creatinine Clr Calc Pharmacy 65.7 ml/min; Est GFR (African American) 105.3 ml/min; Est GFR (Non-African American) 90.9 ml/min; Potassium 3.8 mmol/L (3.5-5.1)
[2021-06-17] MEDS: ENOXAPARIN INJ 40 MG/0.4 ML SYR SQ SCH (12:50)
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
--- NOTE | 2021-06-17 13:51 | Nephrology Progress Note ---
Date of Service June 17, 2021 Assessment & Plan (1) Hyponatremia: Plan: Urine and plasma studies point toward SIADH picture. Sodium finally w/ small increase to 129 after x days stable at 127-128; had been improving slowly, up to 128 06/14 from 127 06/13 and long plateau since admission mid 120s (admitted at 126 on 06/05). As OP her sNa has run about 130 over past year; would aim for achieving at least 128-129 and holding it 24 hr before d/c though w/ normal osmolality this is not obligate -continue to Fluid restrict at 1.2 lit; PROT SHAkes don't count toward this -Continue sodium chloride to 1 g 3 times daily -continue increased lasix to 80 mg bid17 po -started Madsen 06/15, to continue ->>Control her nausea and pain, as this on nonosmotic ADH stimulus which can worsen the hyponatremia. Discharge recommendations (in case she is d/c today; I will cont to follow her if not d/c) -continue above medications at discharge; madsen may be costly/hard to find > if so ok to d/c this -weekly bmp to be ordered by nephro nurse at hospital discharge x 3 checks -hospital discharge appt (not a clinic follow up appt) with me in CKD clinic in 3-4 wks pls care coordinated w/ Dr Martini Admission and Anticipated Discharge Date Admission Date: June 05, 2021 Subjective no interval clinical events. up several times ON to void and L hip quite sore; no N today; no sob, no edema, no dysuria Review of Systems Review of Systems: All systems reviewed & are unremarkable except as noted in Subjective Physical Exam Constitutional: well developed and well nourished; no acute distress (but un comfortable today) Eyes: EOM intact bilaterally ENMT: Ears: no external ear abnormality Nose: no external nose abnormality Mouth: + dry oral mucous membranes Neck: no nuchal rigidity Respiratory: normal respiratory effort Auscultation: + diminished lung sounds Cardiovascular: Rate/Rhythm: regular rate and regular rhythm Extremities: no edema Gastrointestinal (Abdomen): Inspection/Auscultation: normal bowel sounds (colostomy present) Percussion/Palpation: abdomen soft; abdomen nontender Musculoskeletal: Extremities: strength 5/5 throughout Skin: no rashes, warm and dry (incisions cdi) Neurologic: howard, fluent speech, no tremor Psychiatric: Orientation: oriented x 3 Results & Data ([facility]) Vital Signs (Past 12 Hours) Vital Signs Temp Pulse Resp BP Pulse Ox 06/17/21 07:37 36.7 C 83 18 134/77 99 Laboratory Results 06/15/21 07:46 06/17/21 08:35
--- NOTE | 2021-06-17 20:52 | Ultrasound Report ---
US venous doppler LE LT CLINICAL HISTORY: leg edema, pain; r/o dvt COMPARISON: None available at the time of this dictation. TECHNIQUE: Left lower extremity real-time compression venous ultrasound with Color Doppler imaging. Utilizing real-time ultrasonic imaging multiple real time high-resolution ultrasonic images with comp ression and noncompression maneuvers of the deep venous system in addition to color doppler imaging w ere performed from the common femoral vein through the proximal calf veins. FINDINGS: Currently there is normal compressibility of the deep venous system from the common femoral vein thro ugh the proximal calf veins. No current evidence of acute thrombosis is identified. Impression: No evidence of deep venous thrombus. ACT 112: Negative or not required by law. Electronically signed by: Perez Everett M.D. 06/17/2021 8:51 PM
[2021-06-17] MEDS: CYCLOBENZAPRINE HCL 5 MG TAB PO SCH (21:10)
[2021-06-18] MEDS: PYRIDOXINE HCL 50 MG TAB PO SCH ×3 (09:04→17:23)
[2021-06-18] MEDS: THIAMINE HCL 100 MG TAB PO SCH (09:04)
[2021-06-18] MEDS: MONTELUKAST SODIUM 10 MG TABLET PO SCH (09:05)
[2021-06-18] MEDS: FUROSEMIDE 80 MG TAB PO SCH ×2 (09:05→17:23)
[2021-06-18] MEDS: SODIUM CHLORIDE 1 GM TABLET PO SCH ×3 (09:05→21:05)
[2021-06-18] MEDS: LOSARTAN POTASSIUM 50 MG TAB PO SCH (09:05)
[2021-06-18] MEDS: ACETAMINOPHEN 500 MG TAB PO SCH ×4 (09:06→21:05)
[2021-06-18] MEDS: UREA (UREA-NA) 15 GM PACK PO SCH ×2 (09:07→21:45)
[2021-06-18] MEDS: ENOXAPARIN INJ 40 MG/0.4 ML SYR SQ SCH (11:52)
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
--- NOTE | 2021-06-18 16:21 | Nephrology Progress Note ---
Date of Service June 18, 2021 Assessment & Plan (1) Hyponatremia: Plan: Urine and plasma studies point toward SIADH picture. Sodium finally w/ small increase to 129 after x days stable at 127-128; had been improving slowly, up to 128 06/14 from 127 06/13 and long plateau since admission mid 120s (admitted at 126 on 06/05). As OP her sNa has run about 130 over past year; would aim for achieving at least 128-129 and holding it 24 hr before d/c though w/ normal osmolality this is not obligate -continue to Fluid restrict at 1.2 lit; PROT SHAkes don't count toward this -Continue sodium chloride to 1 g 3 times daily -lowered lasix starting tomorrow to 60 mg from 80 mg bid17 po -started Madsen 06/15, to continue ->>Control her nausea and pain, as this on nonosmotic ADH stimulus which can worsen the hyponatremia. Will not sign off quite yet but here are Discharge recommendations -continue above medications at discharge; madsen may be costly/hard to find > if so ok to d/c this -weekly bmp to be ordered by nephro nurse at hospital discharge x 3 checks -hospital discharge appt (not a clinic follow up appt) with me in CKD clinic in 3-4 wks pls Admission and Anticipated Discharge Date Admission Date: June 05, 2021 Subjective no interval events; at bedside; finds the madsen makes her N Review of Systems Review of Systems: All systems reviewed & are unremarkable except as noted in Subjective Physical Exam Constitutional: well developed, well nourished and comfortable; no acute distress (but uncomfortable today) Eyes: EOM intact bilaterally ENMT: Ears: no external ear abnormality Nose: no external nose abnormality Mouth: + dry oral mucous membranes Neck: no nuchal rigidity Respiratory: normal respiratory effort Auscultation: + diminished lung sounds Cardiovascular: Rate/Rhythm: regular rate and regular rhythm Extremities: no edema Gastrointestinal (Abdomen): Inspection/Auscultation: normal bowel sounds (colostomy present) Percussion/Palpation: abdomen soft; abdomen nontender Musculoskeletal: Extremities: strength 5/5 throughout Skin: no rashes, warm and dry (incisions cdi) Psychiatric: Orientation: oriented x 3 Results & Data ([facility]) Vital Signs (Past 12 Hours) Vital Signs Temp Pulse Resp BP BP Pulse Ox 06/18/21 15:24 36.8 C 90 18 131/68 97 06/18/21 09:53 94 H 129/75 06/18/21 09:03 178/83 H 06/18/21 07:25 36.7 C 79 18 130/80 97 Laboratory Results 06/15/21 07:46 06/18/21 17:19
[2021-06-18 18:03] LABS: BUN Creatinine Ratio 71.9 (10-20); Calcium 9.5 mg/dl (8.5-10.1); Creatinine Clr Calc Pharmacy 72.6 ml/min; Est GFR (African American) 108.9 ml/min; Est GFR (Non-African American) 93.9 ml/min; Potassium 4.4 mmol/L (3.5-5.1)
[2021-06-18] MEDS: oxyCODONE HCL IR 5 MG TAB (IMMEDIATE RELEASE) PO PRN (21:04)
[2021-06-18] MEDS: CYCLOBENZAPRINE HCL 5 MG TAB PO SCH (21:06)
[2021-06-19] MEDS: oxyCODONE HCL IR 5 MG TAB (IMMEDIATE RELEASE) PO PRN ×2 (07:50→21:44)
[2021-06-19] MEDS: UREA (UREA-NA) 15 GM PACK PO SCH ×2 (07:50→21:45)
[2021-06-19] MEDS: PYRIDOXINE HCL 50 MG TAB PO SCH ×3 (07:51→16:55)
[2021-06-19] MEDS: SODIUM CHLORIDE 1 GM TABLET PO SCH ×3 (07:51→21:46)
[2021-06-19] MEDS: THIAMINE HCL 100 MG TAB PO SCH (07:51)
[2021-06-19] MEDS: ACETAMINOPHEN 500 MG TAB PO SCH ×4 (07:51→21:44)
[2021-06-19] MEDS: LOSARTAN POTASSIUM 50 MG TAB PO SCH (07:52)
[2021-06-19] MEDS: MONTELUKAST SODIUM 10 MG TABLET PO SCH (07:52)
[2021-06-19] MEDS: FUROSEMIDE 20 MG TAB PO SCH ×2 (07:54→16:54)
--- NOTE | 2021-06-19 09:49 | Nephrology Progress Note ---
Date of Service June 19, 2021 Assessment & Plan (1) Hyponatremia: Plan: Urine and plasma studies point toward SIADH picture. Sodium finally w/ small increase to 129 after x days stable at 127-128; had been improving slowly, up to 128 06/14 from 127 06/13 and long plateau since admission mid 120s (admitted at 126 on 06/05). As OP her sNa has run about 130 over past year; would aim for achieving at least 128-129 and holding it 24 hr before d/c though w/ normal osmolality this is not obligate -continue to Fluid restrict at 1.2 lit; PROT SHAkes don't count toward this -Continue sodium chloride to 1 g 3 times daily -continue on 60 mg BID lasix ( This was decreased from 80 mg bid, on 06/18) -Continue on Madsen (started on 06/15, to continue) ->>Control her nausea and pain, as this on nonosmotic ADH stimulus which can worsen the hyponatremia. Will not sign off quite yet but here are Discharge recommendations -continue above medications at discharge; madsen may be costly/hard to find > if so ok to d/c this -weekly bmp to be ordered by nephro nurse at hospital discharge x 3 checks -hospital discharge appt (not a clinic follow up appt) with Dr Claros in CKD clinic in 3-4 wks pls Admission and Anticipated Discharge Date Admission Date: June 05, 2021 Subjective Sitting out in chair, looks comfortble. No new issues overnight. Review of Systems Review of Systems: All other systems were reviewed and negative except as noted in HPI Physical Exam Physical Exam: Constitutio nal: well develop ed, well nourished and comfortable; no acute distress (but uncomfortab le today) Eyes: EOM intact b ilaterally ENMT: Ears: no ext ernal ear abnormal ity Nose: no exte rnal nose abnormal ity Mouth: + dr y oral mucous memb ranes Neck: no nuchal ri gidity Respiratory : normal respi ratory effort Aus cultation: + dimin ished lung sounds Cardiovascu lar: Rate/Rhythm: regular rate and regular rhythm Ex tremities: no екатерина a Gastrointes tinal (Abdomen): Inspection/Aus cultation: mary l bowel sounds (co lostomy present) Percussion/Palpati on: abdomen soft ; abdomen nontende r Musculoskel etal: Extremities: strength 5/5 thro ughout Skin: no rashes, w arm and dry (incis ions cdi) Psychiatric : Orientation: oriented x 3 Results & Data ([facility]) Vital Signs (Past 12 Hours) Vital Signs Temp Pulse Resp BP Pulse Ox 06/19/21 07:30 37 C 77 16 149/67 H 96 06/18/21 22:09 36.8 C 80 16 144/80 H 99 Laboratory Results 06/15/21 07:46 06/18/21 17:19
--- NOTE | 2021-06-19 11:00 | XRay Report ---
XR knee LT 1 or 2V routine CLINICAL HISTORY: knee pain, r/o fracture TECHNIQUE: 2 views of the left knee were obtained. Comparison: Comparison is made to the radiographs 06/05/2021 FINDINGS: Redemonstration of chronic distal femur fracture with plate and screw fixation. The alignment is kapil omic. Joint spaces are well-preserved. No joint effusion is seen. No soft tissue abnormality is seen. IMPRESSION: Stable chronic distal femur fracture with plate and screw fixation. ACT 112: Negative or not required by law. Electronically signed by: Perez Everett M.D. 06/19/2021 10:59 AM
[2021-06-19] MEDS: ENOXAPARIN INJ 40 MG/0.4 ML SYR SQ SCH (12:12)
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
[2021-06-19] MEDS: CYCLOBENZAPRINE HCL 5 MG TAB PO SCH (21:46)
[2021-06-20] MEDS: THIAMINE HCL 100 MG TAB PO SCH (08:14)
[2021-06-20] MEDS: SODIUM CHLORIDE 1 GM TABLET PO SCH ×3 (08:14→21:28)
[2021-06-20] MEDS: UREA (UREA-NA) 15 GM PACK PO SCH ×2 (08:15→21:28)
[2021-06-20] MEDS: LOSARTAN POTASSIUM 50 MG TAB PO SCH (08:15)
[2021-06-20] MEDS: MONTELUKAST SODIUM 10 MG TABLET PO SCH (08:16)
[2021-06-20] MEDS: PYRIDOXINE HCL 50 MG TAB PO SCH ×3 (08:16→17:06)
[2021-06-20] MEDS: FUROSEMIDE 20 MG TAB PO SCH ×2 (08:16→17:06)
[2021-06-20] MEDS: ACETAMINOPHEN 500 MG TAB PO SCH ×4 (08:20→21:27)
[2021-06-20] MEDS: oxyCODONE HCL IR 5 MG TAB (IMMEDIATE RELEASE) PO PRN ×2 (08:20→21:27)
[2021-06-20 09:57] LABS: BUN Creatinine Ratio 81.8 (10-20); Calcium 9.5 mg/dl (8.5-10.1); Creatinine Clr Calc Pharmacy 75.3 ml/min; Est GFR (African American) 110.1 ml/min; Potassium 4.1 mmol/L (3.5-5.1)
[2021-06-20] MEDS: ENOXAPARIN INJ 40 MG/0.4 ML SYR SQ SCH (12:40)
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
[2021-06-20] MEDS: CYCLOBENZAPRINE HCL 5 MG TAB PO SCH (21:28)
[2021-06-21] MEDS: MONTELUKAST SODIUM 10 MG TABLET PO SCH (07:59)
[2021-06-21] MEDS: THIAMINE HCL 100 MG TAB PO SCH (07:59)
[2021-06-21] MEDS: FUROSEMIDE 20 MG TAB PO SCH ×2 (07:59→16:48)
[2021-06-21] MEDS: SODIUM CHLORIDE 1 GM TABLET PO SCH ×3 (07:59→21:13)
[2021-06-21] MEDS: PYRIDOXINE HCL 50 MG TAB PO SCH ×3 (08:00→16:49)
[2021-06-21] MEDS: LOSARTAN POTASSIUM 50 MG TAB PO SCH (08:00)
[2021-06-21] MEDS: UREA (UREA-NA) 15 GM PACK PO SCH ×2 (08:00→21:13)
[2021-06-21] MEDS: oxyCODONE HCL IR 5 MG TAB (IMMEDIATE RELEASE) PO PRN (08:04)
[2021-06-21] MEDS: ACETAMINOPHEN 500 MG TAB PO SCH ×4 (08:05→22:01)
[2021-06-21] MEDS: ENOXAPARIN INJ 40 MG/0.4 ML SYR SQ SCH (10:17)
[2021-06-21] MEDS: ERGOCALCIFEROL 50,000 UNITS 1250 MCG CAP PO SCH (10:17)
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
[2021-06-21] MEDS: CYCLOBENZAPRINE HCL 5 MG TAB PO SCH (21:12)
[2021-06-21] MEDS ORDERED: oxyCODONE HCL IR 5 MG TAB (IMMEDIATE RELEASE) PO STA (21:28)
[2021-06-22] MEDS: ACETAMINOPHEN 325 MG TAB PO PRN (04:52)
[2021-06-22] MEDS: ACETAMINOPHEN 500 MG TAB PO SCH ×2 (08:20→13:33)
[2021-06-22] MEDS: FUROSEMIDE 20 MG TAB PO SCH (08:21)
[2021-06-22] MEDS: LOSARTAN POTASSIUM 50 MG TAB PO SCH (08:21)
[2021-06-22] MEDS: MONTELUKAST SODIUM 10 MG TABLET PO SCH (08:21)
[2021-06-22] MEDS: THIAMINE HCL 100 MG TAB PO SCH (08:21)
[2021-06-22] MEDS: UREA (UREA-NA) 15 GM PACK PO SCH (08:22)
[2021-06-22] MEDS: PYRIDOXINE HCL 50 MG TAB PO SCH ×2 (08:22→11:29)
[2021-06-22] MEDS: SODIUM CHLORIDE 1 GM TABLET PO SCH ×2 (08:22→13:33)
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
[2021-06-22] MEDS: ENOXAPARIN INJ 40 MG/0.4 ML SYR SQ SCH (11:28)
--- NOTE | 2021-06-22 11:44 | Communication Note ---
Date of Service: June 22, 2021 Pt doing well today. Planning for discharge later on today. Asked to check wounds to see if pt is ready for staple removal. All wounds benign. POD 16 Plan for zoya to be dc'd today prior to discharge home. Discussed with nursing.
== END 2021-06-22 16:22 | DRG 480 ==
LOC: ED 23:57 → SUATTDRO 06-05 02:40 → 2S 06-05 02:40 → 3E 06-11 20:00